=== PATIENT | male | born 1960 | race Caucasian/White ===

== ENCOUNTER 2016-11-01 09:37 | Day surgery (SDC) | payer MEDICARE ==
[~2016-11-01] VITALS: Ht 193 cm; Wt 117.8 kg
[2016-11-01] VITALS (12 sets, daily range): BP systolic 122–162; BP diastolic 82–109; PULSE 67–81; RESP 12–22; TEMP 97.5–97.7; O2SAT 87–96; Ht 193 cm; Wt 117.8 kg
[~2016-11-01 09:37] MED LIST: AMLO5TAB2 PO; CALC-946 PO; HYDR12.530 PO; LIDOCAINE 1% (10mg/ml) 2ml SDV INJ ONE; METO-275 PO; MOME13HF2 INH; NORMAL SALINE 1,000 ML IV ONE; OMEP20CA10 PO; POTA10CA32 PO
--- OUTSIDE RECORDS SUMMARY | 2016-11-01 09:42 | XMS REPORT | Referral Summary ---
Author Author [facility] Organization [facility] Address Unknown Phone Unavailable Care Team Providers Care Family Preservation Officer Name Role Phone Fran Calixto Primary Care Physician [phone] Encounter Date(s): 11/18/15 - 11/18/15 [facility] [address] [place] [id number] Discharge Diagnosis: Sarcoidosis Discharge Disposition: 01-Home or Self Care Attending Physician: Norma Yuan MD Admitting Physician: Norma Yuan MD Referring Physician: Norma Yuan MD Vital Signs No data available for this section Problem List Condition Effective Dates Status Health Status Informant Acute peptic Active ulcer(Confirmed) At risk for Active infection(Confirmed) 1 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 ) Calculus in Active urethra(Confirmed) H/O Active sarcoidosis(Confirme d) Hypertension(Confirm Active ed) Irregular heart Active rhythm(Confirmed) Kidney stone Active (disorder)(Confirmed ) Mental Active retardation(Confirme d) Peptic 1984 Active ulcer(Confirmed) Sarcoidosis Active (disorder)(Confirmed ) Schizophrenia(Confir Active med) 1Problem added automatically by system based on initiation of At Risk for Infection in Nutrition Plan of Care Allergies, Adverse Reactions, Alerts Substance Reaction Severity Status NKMA Active No Known Allergies Active Medications amLODIPine 5 mg oral tablet See Instructions, 1 tabs Oral Daily,Instr:DC 10 mg tablets, # 90 tabs, eRx: [facility], 1 tabs Oral Daily,Instr:DC 10 mg tablets Start Date: 06/02/15 Status: Ordered amLODIPine 5 mg oral tablet See Instructions, 1 tabs Oral Daily,Instr:DC 10 mg tablets, # 90 tabs, eRx: [facility], 1 tabs Oral Daily,Instr:DC 10 mg tablets Start Date: 09/08/15 Status: Ordered Metoprolol Succinate ER 25 mg oral tablet, extended release See Instructions, 1 tabs Oral Daily, # 90 tabs, eRx: [facility], 1 tabs Oral Daily Start Date: 09/29/15 Status: Ordered multivitamin 1 tabs, Chewed, Daily, 0 Refill(s) Start Date: 03/19/15 Status: Ordered omeprazole 20 mg oral delayed release capsule See Instructions, TAKE ONE CAPSULE BY MOUTH ONCE DAILY, # 30 caps, eRx: [facility], TAKE ONE CAPSULE BY MOUTH ONCE DAILY Start Date: 11/17/15 Status: Ordered omeprazole 20 mg oral delayed release capsule See Instructions, TAKE ONE CAPSULE BY MOUTH ONCE DAILY, # 30 caps, eRx: [facility], TAKE ONE CAPSULE BY MOUTH ONCE DAILY Start Date: 10/06/15 Status: Ordered PriLOSEC 20 mg oral delayed release capsule 20 mg 1 caps, Oral, BID, # 60 caps, 6 Refill(s), Pharmacy: [facility], 1 caps Oral BID Start Date: 11/18/15 Status: Ordered Vitamin D3 5000 intl units oral tablet 5,000 Intl_Units 1 tabs, Oral, Daily, # 100 tabs, 0 Refill(s) Start Date: 10/23/14 Status: Ordered Results No data available for this section Immunizations Vaccine Date Refusal Reason influenza virus vaccine, inactivated 03/19/15 influenza virus vaccine, inactivated1 04/05/14 1Location History: See scanned document Procedures Procedure Date Related Diagnosis Body Site Cystoscopy Ureteroscopy1 08/28/15 Nephrostolithotomy Percutaneous (Right)2 08/07/15 Nephrostolithotomy Percutaneous (Left)3 07/03/15 Cystoscopy Retrograde Pyelogram (Left)4 05/06/15 Cystoscopy Ureteroscopy (Left)5 05/06/15 Colonoscopy6 12/27/11 Esophagogastroduodenoscopy7 12/27/11 LT Ureteroscopy 02/17/11 Pyeloscopy w/laser lithotripsy 02/17/11 Bronchoscopy8 02/03/11 Ld ESWL w/ cystoscopy/remove j-stent 11/24/10 LT percutaneous nephrolithotomy9 09/29/10 RT percutaneous [id number] 09/01/10 Blood [id number] 1983 Parathyroid 1auto-populated from documented surgical case 2auto-populated from documented surgical case 3auto-populated from documented surgical case 4auto-populated from documented surgical case 5auto-populated from documented surgical case 6WNL repeat in 10 yrs 7Showing mild chornic gastritis and reflux esophagitis 8Trombold 9Fitzig 10Double J-Stent insertion Fitzig 11Due to bleeding gastric ulcer Social History Social History Type Response Smoking Status Never smoker Assessment and Plan No data available for this section
--- OUTSIDE RECORDS SUMMARY | 2016-11-01 09:42 | XMS REPORT | Referral Summary ---
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 Providers Care Commission Agent Livestock Name Role Phone Fran Calixto Primary Care Physician [phone] Encounter VC Date(s): 05/09/15 - 05/09/15 [facility] [address] [place] [id number] Discharge Disposition: 01-Home or Self Care Attending Physician: Mario Tomas MD Admitting Physician: Mario Tomas MD Vital Signs Most recent to 1 oldest [Reference Range]: Blood Pressure 130/80 mmHg [90-140/60-90 mmHg] (05/09/15 8:30 AM) Problem List Condition Effective Dates Status Health Status Informant Acute peptic Active ulcer(Confirmed) 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 ) Calculus in Active urethra(Confirmed) Hypertension(Confirm Active ed) Irregular heart Active rhythm(Confirmed) Kidney stone Active (disorder)(Confirmed ) Mental Active retardation(Confirme d) Peptic 1984 Active ulcer(Confirmed) Sarcoidosis Active (disorder)(Confirmed ) Schizophrenia(Confir Active med) Allergies, Adverse Reactions, Alerts Substance Reaction Severity Status NKMA Active No Known Allergies Active Medications amLODIPine 5 mg oral tablet See Instructions, 1 tabs Oral Daily,Instr:DC 10 mg tablets, # 90 tabs, eRx: [facility], 1 tabs Oral Daily,Instr:DC 10 mg tablets Start Date: 03/04/15 Status: Ordered Cipro 500 mg oral tablet 500 mg 1 tabs, Oral, q12hr, X 10 days, # 8 tabs, 0 Refill(s), Pharmacy: [facility], 1 tabs Oral q12hr,x10 days Start Date: 05/06/15 Stop Date: 05/16/15 Status: Ordered Flomax 0.4 mg oral capsule 0.4 mg 1 caps, Oral, Daily, # 30 caps, 0 Refill(s), Pharmacy: [facility], 1 caps Oral Daily Start Date: 05/06/15 Status: Ordered hydrochlorothiazide 12.5 mg oral capsule See Instructions, 1 caps Oral Daily, # 30 Each, 10 Refill(s), eRx: [facility], 1 caps Oral Daily Start Date: 03/31/15 Status: Ordered Metoprolol Succinate ER 25 mg oral tablet, extended release 1 tabs, Oral, Daily, # 90 tabs, 3 Refill(s), Pharmacy: [facility] Start Date: 06/24/14 Status: Ordered multivitamin 1 tabs, Chewed, Daily, 0 Refill(s) Start Date: 03/19/15 Status: Ordered omeprazole 20 mg oral delayed release tablet See Instructions, 1 tabs Oral Daily, # 30 tabs, 5 Refill(s), eRx: [facility], 1 tabs Oral Daily Start Date: 01/10/15 Status: Ordered predniSONE 10 mg oral tablet See Instructions, TAKE ONE TABLET BY MOUTH ONCE DAILY, # 30 tabs, eRx: [facility], TAKE ONE TABLET BY MOUTH ONCE DAILY Start Date: 05/05/15 Status: Ordered Vitamin D3 5000 intl units oral tablet Oral, Daily, # 100 tabs, 0 Refill(s) Start Date: 10/23/14 Status: Ordered Results No data available for this section Immunizations Vaccine Date Refusal Reason influenza virus vaccine, inactivated 03/19/15 influenza virus vaccine, inactivated1 04/05/14 1Location History: See scanned document Procedures Procedure Date Related Diagnosis Body Site Cystoscopy Retrograde Pyelogram (Left)1 05/06/15 Cystoscopy Ureteroscopy (Left)2 05/06/15 Colonoscopy3 12/27/11 Esophagogastroduodenoscopy4 12/27/11 LT Ureteroscopy 02/17/11 Pyeloscopy w/laser lithotripsy 02/17/11 Bronchoscopy5 02/03/11 Ld ESWL w/ cystoscopy/remove j-stent 11/24/10 LT percutaneous nephrolithotomy6 09/29/10 RT percutaneous nephrolithotomy7 09/01/10 Blood transfusion8 1983 Parathyroid 1auto-populated from documented surgical case 2auto-populated from documented surgical case 3WNL repeat in 10 yrs 4Showing mild chornic gastritis and reflux esophagitis 5Trombold 6Fitzig 7Double J-Stent insertion Fitzig 8Due to bleeding gastric ulcer Social History Social History Type Response Smoking Status Never smoker Assessment and Plan Extracted from: Title: Ambulatory Patient Education Author: Mario Tomas MD Date: Family Medicine Dietary Guidelines to Help Prevent Kidney Stones Your risk of kidney stones can be decreased by adjusting the foods you eat. The most important thing you can do is drink enough fluid. You should drink enough fluid to keep your urine clear or pale yellow. The following guidelines provide specific information for the type of kidney stone you have had. GUIDELINES ACCORDING TO TYPE OF KIDNEY STONE Calcium Oxalate Kidney Stones Reduce the amount of salt you eat. Foods that have a lot of salt cause your body to release excess calcium into your urine. The excess calcium can combine with a substance called oxalate to form kidney stones. Reduce the amount of animal protein you eat if the amount you eat is excessive. Animal protein causes your body to release excess calcium into your urine. Ask your dietitian how much protein from animal sources you should be eating. Avoid foods that are high in oxalates. If you take vitamins, they should have less than 500 mg of vitamin C. Your body turns vitamin C into oxalates. You do not need to avoid fruits and vegetables high in vitamin C. Calcium Phosphate Kidney Stones Reduce the amount of salt you eat to help prevent the release of excess calcium into your urine. Reduce the amount of animal protein you eat if the amount you eat is excessive. Animal protein causes your body to release excess calcium into your urine. Ask your dietitian how much protein from animal sources you should be eating. Get enough calcium from food or take a calcium supplement (ask your dietitian for recommendations). Food sources of calcium that do not increase your risk of kidney stones include: Broccoli. Dairy products, such as cheese and yogurt. Pudding. Uric Acid Kidney Stones Do not have more than 6 oz of animal protein per day. FOOD SOURCES Animal Protein Sources Meat (all types). Poultry. Eggs. Fish, seafood. Foods High in Salt Salt seasonings. Soy sauce. Teriyaki sauce. Cured and processed meats. Salted crackers and snack foods. Fast food. Canned soups and most canned foods. Foods High in Oxalates Grains: Amaranth. Barley. Grits. Wheat germ. Bran. Buckwheat flour. All bran cereals. Pretzels. Whole wheat bread. Vegetables: Beans (wax). Beets and beet greens. Sami greens. Eggplant. Escarole. Leeks. Okra. Parsley. Rutabagas. Spinach. German chard. Tomato paste. Fried potatoes. Sweet potatoes. Fruits: Red currants. Figs. Kiwi. Rhubarb. Meat and Other Protein Sources: Beans (dried). Soy burgers and other soybean products. Miso. Nuts (peanuts, almonds, pecans, cashews, hazelnuts). Nut butters. Sesame seeds and tahini (paste made of sesame seeds). Poppy seeds. Beverages: Chocolate drink mixes. Soy milk. Instant iced tea. Juices made from high-oxalate fruits or vegetables. Other: Carob. Chocolate. Fruitcake. Marmalades. Document Released: 10/08/2011 Document Revised: 06/18/2014 Document Reviewed: [employer] Patient Information 2015 [facility], [facility]. This information is not intended to replace advice given to you by your health care provider. Make sure you discuss any questions you have with your health care provider. No follow up information was provided. Extracted from: Title: Office Visit Note Author: Mario Tomas MD Date: 05/09/15 Assessment/Plan Kidney stone
--- OUTSIDE RECORDS SUMMARY | 2016-11-01 09:42 | XMS REPORT | Referral Summary ---
Author Author [facility] Organization [facility] Address Unknown Phone Unavailable Care Team Providers Care Central Office Associate Name Role Phone Fran Calixto Primary Care Physician [phone] Encounter VC Date(s): 12/09/14 - 12/09/14 [facility] [address] [place] [id number] Discharge Disposition: 01-Home or Self Care Attending Physician: Min Calixto MD Admitting Physician: Min Calixto MD Vital Signs Most recent to 1 oldest [Reference Range]: Blood Pressure 116/84 mmHg [90-140/60-90 mmHg] (12/09/14 1:33 PM) Problem List Condition Effective Dates Status Health [...] 10 mg tablets, # 90 tabs, eRx: [facility], 1 tabs Oral Daily,Instr:DC 10 mg tablets Start Date: 06/02/15 Status: Ordered Metoprolol Succinate ER 25 mg oral tablet, extended release 1 tabs, Oral, Daily, # 90 tabs, 3 Refill(s), Pharmacy: [facility] Start Date: 06/24/14 Status: Ordered multivitamin 1 tabs, Chewed, Daily, 0 Refill(s) Start Date: 03/19/15 Status: Ordered omeprazole 20 mg oral delayed release tablet See Instructions, 1 tabs Oral Daily, # 30 tabs, 5 Refill(s), eRx: [facility], 1 tabs Oral Daily Start Date: 01/10/15 Status: Ordered Vitamin D3 5000 intl units oral tablet Oral, Daily, # 100 tabs, 0 Refill(s) Start Date: 10/23/14 Status: Ordered Results Chemistry Most recent to 1 oldest [Reference Range]: Sodium Lvl [135-144 142 mEq/L mEq/L] (12/09/14 2:44 PM) Potassium Lvl 3.7 mEq/L [3.5-5.2 mEq/L] (12/09/14 2:44 PM) Chloride [99-111 104 mEq/L mEq/L] (12/09/14 2:44 PM) CO2 [23-31 mEq/L] 29 mEq/L (12/09/14 2:44 PM) AGAP [3-20] 9 (12/09/14 2:44 PM) BUN [8-26 mg/dL] 22 mg/dL (12/09/14 2:44 PM) Glucose Lvl [70-99 90 mg/dL mg/dL] (12/09/14 2:44 PM) Creatinine Lvl 1.29 mg/dL [0.72-1.25 mg/dL] *HI* (12/09/14 2:44 PM) eGFR [>60 mL/min] 58 mL/min 1 *ABN* (12/09/14 2:44 PM) Calcium Lvl 9.9 mg/dL [8.9-10.5 mg/dL] (12/09/14 2:44 PM) Albumin Lvl [3.5-5.0 4.0 gm/dL gm/dL] (12/09/14 2:44 PM) Total Protein 6.2 gm/dL [6.4-8.3 gm/dL] *LOW* (12/09/14 2:44 PM) Globulin [1.8-4.0 2.2 gm/dL gm/dL] (12/09/14 2:44 PM) ALT [0-55 U/L] 24 U/L (12/09/14 2:44 PM) AST [5-34 U/L] 22 U/L (12/09/14 2:44 PM) Alk Phos [40-150 55 U/L U/L] (12/09/14 2:44 PM) Bili Total [0.2-1.2 0.7 mg/dL mg/dL] (12/09/14 2:44 PM) T4 [4.8-11.7 mcg/dL] 6.5 mcg/dL (12/09/14 2:44 PM) TSH [0.35-4.94] 2.87 (12/09/14 2:44 PM) 1Result Comment: Multiply eGFR results by 1.21 for race. Immunizations Vaccine Date Refusal Reason influenza virus [...] Extracted from: Title: Ambulatory Patient Education Author: Min Calixto MD Date: Family Medicine Diet for Peptic Ulcer Disease Peptic ulcer disease is a term used to describe open sores in the stomach and digestive tract. These sores can be painful, and the pain can be worse when the stomach is empty. These ulcers can lead to bleeding in the esophagus, stomach, and intestines (gastrointestinal tract ). Nutrition therapy can help ease the discomfort of peptic ulcer disease. GENERAL DIET GUIDELINES FOR PEPTIC ULCER DISEASE Your diet should be rich in fruits, vegetables, and whole grains. It should also be low in fat. Avoid foods that can irritate your sores. Avoid foods that are not tolerated or foods that cause pain. This may be different for different people. FOODS AND DRINKS TO AVOID High-fat dairy and milk products including whole milk, cream, chocolate milk, butter, sour cream, or cream cheese. High-fat meats and poultry including hot dogs, fried meats or poultry, meats with skin, sausage, or cintron. Pepper. Alcohol. Chocolate. Tea, coffee, and cola (regular and caffeine). Lard or hydrogenated oils such as stick margarine. SAMPLE MEAL PLAN This meal plan is approximately 2000 calories based on [employer] meal planning guidelines. Breakfast cup cooked oatmeal. 1 cup strawberries. 1 cup low-fat milk. 1 oz almonds. Snack 1 cup cucumber slices. 6 oz yogurt (made from low-fat or fat-free milk). Lunch 2 slices whole-wheat bread. 2 oz sliced turkey. 2 tsp mayonnaise. 1 cup blueberries. 1 cup snap peas. Snack 6 whole-wheat crackers. 1 oz string cheese. Dinner cup brown rice. 1 cup mixed veggies. 1 tsp olive oil. 3 oz grilled fish. Document Released: 09/04/2012 Document Reviewed: 09/04/2012 [facility] Patient Information 2014 [employer] [facility]. Peptic Ulcer A peptic ulcer is a sore in the lining of in your esophagus (esophageal ulcer ) , stomach (gastric ulcer ), or in the first part of your small intestine ( duodenal ulcer ). The ulcer causes erosion into the deeper tissue. CAUSES Normally, the lining of the stomach and the small intestine protects itself from the acid that digests food. The protective lining can be damaged by: An infection caused by a bacterium called Helicobacter pylori (H. pylori ) . Regular use of nonsteroidal anti-inflammatory drugs (NSAIDs), such as ibuprofen or aspirin. Smoking tobacco. Other risk factors include being older than 50, drinking alcohol excessively, and having a family history of ulcer disease. SYMPTOMS Burning pain or gnawing in the area between the chest and the belly button. Heartburn. Nausea and vomiting. Bloating. The pain can be worse on an empty stomach and at night. If the ulcer results in bleeding, it can cause: Black, tarry stools. Vomiting of bright red blood. Vomiting of coffee ground looking materials. DIAGNOSIS A diagnosis is usually made based upon your history and an exam. Other tests and procedures may be performed to find the cause of the ulcer. Finding a cause will help determine the best treatment. Tests and procedures may include: Blood tests, stool tests, or breath tests to check for the bacterium H. pylori . An upper gastrointestinal (GI) series of the esophagus, stomach, and small intestine. An endoscopy to examine the esophagus, stomach, and small intestine. A biopsy. TREATMENT Treatment may include: Eliminating the cause of the ulcer, such as smoking, NSAIDs, or alcohol. Medicines to reduce the amount of acid in your digestive tract. Antibiotic medicines if the ulcer is caused by the H. pylori bacterium. An upper endoscopy to treat a bleeding ulcer. Surgery if the bleeding is severe or if the ulcer created a hole somewhere in the digestive system. HOME CARE INSTRUCTIONS Avoid tobacco, alcohol, and caffeine. Smoking can increase the acid in the stomach, and continued smoking will impair the healing of ulcers. Avoid foods and drinks that seem to cause discomfort or aggravate your ulcer. Only take medicines as directed by your caregiver. Do not substitute over- the-counter medicines for prescription medicines without talking to your caregiver. Keep any follow-up appointments and tests as directed. SEEK MEDICAL CARE IF: Your do not improve within 7 days of starting treatment. You have ongoing indigestion or heartburn. SEEK IMMEDIATE MEDICAL CARE IF: You have sudden, sharp, or persistent abdominal pain. You have bloody or dark black, tarry stools. You vomit blood or vomit that looks like coffee grounds. You become light headed, weak, or feel faint. You become sweaty or clammy. MAKE SURE YOU: Understand these instructions. Will watch your condition. Will get help right away if you are not doing well or get worse. Document Released: 06/10/2001 Document Revised: 03/07/2013 Document Reviewed: [employer] Patient Information 2014 [employer]. No follow up information was provided. Extracted from: Title: Office Visit Note Author: Min Calixto MD Date: 12/09/14 Assessment/Plan Acute peptic ulcer Will start Prilosec 20mg daily. Continue with the other medications. Ordered: Helicobacter pylori Antibody IgG Office Visit Level 4 Est 93605 Hypertension Ordered: Office Visit Level 4 Est 83201 Mental retardation Ordered: Office Visit Level 4 Est 78441 Sarcoidosis (disorder) Ordered: Office Visit Level 4 Est 80261 Orders: amLODIPine, 5 mg 1 tabs, Oral, Daily, DC 10 mg tablets, # 90 tabs, 0 Refill(s), Pharmacy: [facility], 1 tabs Oral Daily,Instr:DC 10 mg tablets omeprazole, 20 mg 1 tabs, Oral, Daily, # 30 tabs, 0 Refill(s), Pharmacy: [facility], 1 tabs Oral Daily
--- OUTSIDE RECORDS SUMMARY | 2016-11-01 09:42 | XMS REPORT | Referral Summary ---
Author Organization Unknown Address Unknown Phone Unavailable Care Team Providers Care Technical Assoc Name Role Phone Fran Calixto Primary Care Physician [phone] Encounter [facility] [id number] Date(s): 10/23/14 - 10/23/14 [facility] [address] [place], [place] [address] Discharge Diagnosis: CALCULUS OF KIDNEY Discharge Disposition: Home or Self Care Attending Physician: Mario Tomas MD Admitting Physician: Mario Tomas MD Vital Signs Most recent to 1 oldest [Reference Range]: Blood Pressure 124/74 mmHg [90-140/60-90 mmHg] (10/23/14 11:00 AM) Problem List Condition Effective Dates Status Health Status Informant 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 ) Calculus in Active urethra(Confirmed) Hypertension(Confirm Active ed) Irregular heart Active rhythm(Confirmed) Kidney stone Active (disorder)(Confirmed ) Mental Active retardation(Confirme d) Peptic 1984 Active ulcer(Confirmed) Sarcoidosis Active (disorder)(Confirmed ) Schizophrenia(Confir Active med) Allergies, Adverse Reactions, Alerts Substance Reaction Severity Status NKMA Active No Known Allergies Active Medications AmLODIPine Besylate 10MG TAB See Instructions, TAKE ONE TABLET BY MOUTH ONCE DAILY, # 90 tabs, eRx: [facility], TAKE ONE TABLET BY MOUTH ONCE DAILY Special Instructions: TAKE ONE TABLET BY MOUTH ONCE DAILY Start Date: 03/07/14 Status: Ordered AmLODIPine Besylate 10MG TAB See Instructions, TAKE ONE TABLET BY MOUTH ONCE DAILY, # 90 tabs, eRx: [facility], TAKE ONE TABLET BY MOUTH ONCE DAILY Special Instructions: TAKE ONE TABLET BY MOUTH ONCE DAILY Start Date: 08/26/14 Status: Ordered AmLODIPine Besylate 10MG TAB See Instructions, TAKE ONE TABLET BY MOUTH ONCE DAILY, # 90 tabs, eRx: [facility], TAKE ONE TABLET BY MOUTH ONCE DAILY Special Instructions: TAKE ONE TABLET BY MOUTH ONCE DAILY Start Date: 06/03/14 Status: Ordered hydrochlorothiazide 12.5 mg oral capsule 1 caps, Oral, Daily, # 90 caps, 1 Refill(s), Pharmacy: [facility], 1 caps Oral Daily Start Date: 07/25/14 Status: Ordered methotrexate 2.5 mg oral tablet See Instructions, TAKE FOUR TABLETS BY MOUTH ONCE A WEEK, # 16 tabs, 5 Refill(s) , eRx: [facility], TAKE FOUR TABLETS BY MOUTH ONCE A WEEK Special Instructions: TAKE FOUR TABLETS BY MOUTH ONCE A WEEK Start Date: 08/12/14 Status: Ordered Metoprolol Succinate ER 25 mg oral tablet, extended release 1 tabs, Oral, Daily, # 90 tabs, 3 Refill(s), Pharmacy: [facility] Start Date: 06/24/14 Status: Ordered Norvasc 10 mg oral tablet 1 tabs, Oral, Daily, # 30 tabs, 0 Refill(s) Start Date: 11/29/13 Status: Ordered predniSONE 10 mg oral tablet See Instructions, TAKE ONE TABLET BY MOUTH EVERY DAY, # 30 tabs, 5 Refill(s), eRx: [facility], TAKE ONE TABLET BY MOUTH EVERY DAY Special Instructions: TAKE ONE TABLET BY MOUTH EVERY DAY Start Date: 04/30/14 Status: Ordered Vitamin D3 5000 intl units oral tablet 1 tabs, Oral, Daily, # 100 tabs, 0 Refill(s) Start Date: 10/23/14 Status: Ordered Results No data available for this section Immunizations Vaccine Date Refusal Reason influenza virus vaccine, inactivated1 04/05/14 1Location History: See scanned document Procedures Procedure Date Related Diagnosis Body Site Colonoscopy1 12/27/11 Esophagogastroduodenoscopy2 12/27/11 LT Ureteroscopy 02/17/11 Pyeloscopy w/laser lithotripsy 02/17/11 Bronchoscopy3 02/03/11 Ld ESWL w/ cystoscopy/remove j-stent 11/24/10 LT percutaneous nephrolithotomy4 09/29/10 RT percutaneous nephrolithotomy5 09/01/10 Blood transfusion6 1983 1WNL repeat in 10 yrs 2Showing mild chornic gastritis and reflux esophagitis 3Trombold 4Fitzig 5Double J-Stent insertion Fitzig 6Due to bleeding gastric ulcer Social History Social History Type Response Smoking Status Never smoker Assessment and Plan Extracted from: Title: Office Visit Note Author: Mario Tomas MD Date: 10/23/14 Assessment/Plan CALCULUS OF KIDNEY Ordered: Calcium Ionized Calcium Level 24 Hour Urine Citrate Excretion 24 Hour Urine-[place] Comprehensive Metabolic Panel Creatinine Lvl 24 Hour Urine Cystinuria Profile Quant 24Hr [facility]-[place] Magnesium Level 24 Hour Urine Oxalate 24 Hour Urine[facility] pH Urine PTH Sodium Level 24 Hour Urine Uric Acid Uric Acid 24 Hour Urine XR Abdomen AP Future Scheduled TestsReferral* Return to Clinic 02/04/14 1:11 PM Referrals to Other Providers Referred by: Marly An MD
--- OUTSIDE RECORDS SUMMARY | 2016-11-01 09:42 | XMS REPORT | Referral Summary ---
Author Author [facility] Organization [facility] Address Unknown Phone Unavailable Care Team Providers Care Chief Order Dispatcher Name Role Phone Fran Calixto Primary Care Physician [phone] Encounter Date(s): 10/23/14 - 10/23/14 [facility] [address] [place] [id number] Discharge Diagnosis: CALCULUS OF KIDNEY Discharge Disposition: 01-Home or Self Care Attending Physician: Mario Tomas MD Admitting Physician: Mario oTmas MD Vital Signs Most recent to 1 [...] 10 mg tablets, # 90 tabs, eRx: [facility], 1 tabs Oral Daily,Instr:DC 10 mg tablets Start Date: 03/04/15 Status: Ordered hydrochlorothiazide 12.5 mg oral capsule See Instructions, 1 caps Oral Daily, # 30 Each, 10 Refill(s), eRx: [facility], 1 caps Oral Daily Start Date: 03/31/15 Status: Ordered Metoprolol Succinate ER 25 mg oral tablet, extended release 1 tabs, Oral, Daily, # 90 tabs, 3 Refill(s), Pharmacy: [facility]28 Start Date: 06/24/14 Status: Ordered multivitamin 1 tabs, Chewed, Daily, 0 Refill(s) Start Date: 03/19/15 Status: Ordered omeprazole 20 mg oral delayed release tablet See Instructions, 1 tabs Oral Daily, # 30 tabs, 5 Refill(s), eRx: [facility], 1 tabs Oral Daily Start Date: 01/10/15 Status: Ordered predniSONE 10 mg oral tablet See Instructions, TAKE ONE TABLET BY MOUTH ONCE DAILY, # 30 tabs, eRx: [facility], TAKE ONE TABLET BY MOUTH ONCE DAILY Start Date: 03/31/15 Status: Ordered Vitamin D3 5000 intl units [...] 24 Hour Urine Citrate Excretion 24 Hour Urine-[place] Comprehensive Metabolic Panel Creatinine Lvl 24 Hour Urine Cystinuria Profile Quant 24Hr Urine-[facility] Magnesium Level 24 Hour Urine Oxalate 24 Hour Urine-[facility] pH Urine PTH Sodium Level 24 Hour Urine Uric Acid Uric Acid 24 Hour Urine XR Abdomen AP
--- OUTSIDE RECORDS SUMMARY | 2016-11-01 09:42 | XMS REPORT | Referral Summary ---
Author Author [facility] Organization [facility] Address Unknown Phone Unavailable Care Team Providers Care Director Organizational Name Role Phone Fran Calixto Primary Care Physician [phone] Encounter [facility] [id number] Date(s): 05/13/15 - 05/13/15 [facility] [address] [place] [address] Discharge Diagnosis: Pulmonary nodules Discharge Diagnosis: Mediastinal lymphadenopathy Discharge Diagnosis: Cough Discharge Disposition: 01-Home or Self Care Attending Physician: Norma Yuan MD Admitting Physician: Norma Yuan MD Referring Physician: Eric Salcedo MD Vital Signs Most recent to 1 oldest [Reference Range]: Peripheral Pulse 71 bpm Rate [60-100 bpm] (05/13/15 3:17 PM) Respiratory Rate 22 br/min [14-20 br/min] *HI* (05/13/15 3:17 PM) Blood Pressure 135/89 mmHg [90-140/60-90 mmHg] (05/13/15 3:17 PM) SpO2 96 % (05/13/15 3:17 PM) Problem List Condition Effective Dates Status [...] 10 mg tablets, # 90 tabs, eRx: [facility], 1 tabs Oral Daily,Instr:DC 10 mg tablets Start Date: 03/04/15 Status: Ordered Cipro 500 mg oral tablet 500 mg 1 tabs, Oral, q12hr, X 10 days, # 8 tabs, 0 Refill(s), Pharmacy: [facility], 1 tabs Oral q12hr,x10 days Start Date: 05/06/15 Stop Date: 05/16/15 Status: Ordered Metoprolol Succinate ER 25 mg oral tablet, extended release 1 tabs, Oral, Daily, # 90 tabs, 3 Refill(s), Pharmacy: [facility] Start Date: 06/24/14 Status: Ordered multivitamin 1 tabs, Chewed, Daily, 0 Refill(s) Start Date: 03/19/15 Status: Ordered omeprazole 20 mg oral delayed release tablet See Instructions, 1 tabs Oral Daily, # 30 tabs, 5 Refill(s), eRx: [facility], 1 tabs Oral [...] Extracted from: Title: Ambulatory Patient Education Author: Norma Yuan Date: 05/13/15 [facility] Lymphadenopathy Lymphadenopathy means "disease of the lymph glands." But the term is usually used to describe swollen or enlarged lymph glands, also called lymph nodes. These are the franks-shaped organs found in many locations including the neck, underarm, and groin. Lymph glands are part of the immune system, which fights infections in your body. Lymphadenopathy can occur in just one area of the body , such as the neck, or it can be generalized, with lymph node enlargement in several areas. The nodes found in the neck are the most common sites of lymphadenopathy. CAUSES When your immune system responds to germs (such as viruses or bacteria ), infection-fighting cells and fluid build up. This causes the glands to grow in size. Usually, this is not something to worry about. Sometimes, the glands themselves can become infected and inflamed. This is called lymphadenitis. Enlarged lymph nodes can be caused by many diseases: Bacterial disease, such as strep throat or a skin infection. Viral disease, such as a common cold. Other germs, such as Lyme disease, tuberculosis, or sexually transmitted diseases. Cancers, such as lymphoma (cancer of the lymphatic system) or leukemia ( cancer of the white blood cells). Inflammatory diseases such as lupus or rheumatoid arthritis. Reactions to medications. Many of the diseases above are rare, but important. This is why you should see your caregiver if you have lymphadenopathy. SYMPTOMS Swollen, enlarged lumps in the neck, back of the head, or other locations. Tenderness. Warmth or redness of the skin over the lymph nodes. Fever. DIAGNOSIS Enlarged lymph nodes are often near the source of infection. They can help health care providers diagnose your illness. For instance: Swollen lymph nodes around the jaw might be caused by an infection in the mouth. Enlarged glands in the neck often signal a throat infection. Lymph nodes that are swollen in more than one area often indicate an illness caused by a virus. Your caregiver will likely know what is causing your lymphadenopathy after listening to your history and examining you. Blood tests, x-rays, or other tests may be needed. If the cause of the enlarged lymph node cannot be found, and it does not go away by itself, then a biopsy may be needed. Your caregiver will discuss this with you. TREATMENT Treatment for your enlarged lymph nodes will depend on the cause. Many times the nodes will shrink to normal size by themselves, with no treatment. Antibiotics or other medicines may be needed for infection. Only take over-the- counter or prescription medicines for pain, discomfort, or fever as directed by your caregiver. HOME CARE INSTRUCTIONS Swollen lymph glands usually return to normal when the underlying medical condition goes away. If they persist, contact your health-care provider. He/she might prescribe antibiotics or other treatments, depending on the diagnosis. Take any medications exactly as prescribed. Keep any follow-up appointments made to check on the condition of your enlarged nodes. SEEK MEDICAL CARE IF: Swelling lasts for more than two weeks. You have symptoms such as weight loss, night sweats, fatigue, or fever that does not go away. The lymph nodes are hard, seem fixed to the skin, or are growing rapidly. Skin over the lymph nodes is red and inflamed. This could mean there is an infection. SEEK IMMEDIATE MEDICAL CARE IF: Fluid starts leaking from the area of the enlarged lymph node. You develop a fever of 102 F (38.9 C) or greater. Severe pain develops (not necessarily at the site of a large lymph node). You develop chest pain or shortness of breath. You develop worsening abdominal pain. MAKE SURE YOU: Understand these instructions. Will watch your condition. Will get help right away if you are not doing well or get worse. Document Released: 03/22/2009 Document Revised: 10/28/2014 Document Reviewed: [facility] Patient Information 2015 [facility]. This information is not intended to replace advice given to you by your health care provider. Make sure you discuss any questions you have with your health care provider. No follow up information was provided. Extracted from: Title: Office Visit Note Author: Norma Yuan Date: 05/13/15 [facility]EL Assessment/Plan 1.Pulmonary nodules 2.Mediastinal lymphadenopathy 3.Cough CT chest done today shows stable pulmonary nodules and hilar lymphadenopathy. It's really unclear if this is sarcoidosis versus histoplasmosis given the calcificationon the mediastinal lymph nodes. And not really sure if patient has cough secondary to sarcoidosis or postnasal drip and acid reflux At this point patient has stable CT chest no need for further follow-ups taper prednisone off and assess the patient's cough if patient's cough is stablethenwould continue to monitor if he has recurrence of the cough. We' ll restart the prednisone and we'll investigate other potential causes such as postnasal drip, acid reflux disease or asthma induced cough Orders: pulmonary stress testing simple 64035
--- OUTSIDE RECORDS SUMMARY | 2016-11-01 09:43 | XMS REPORT | Referral Summary ---
Author Author [facility] Organization [facility] Address Unknown Phone Unavailable Care Team Providers Care Interior Systems Carpenter Name Role Phone Fran Calixto Primary Care Physician [phone] Encounter [facility] Date(s): 08/07/15 - 08/09/15 [facility] [address] [place], [place] [address] Discharge Disposition: 01-Home or Self Care Attending Physician: Mario Tomas MD Admitting Physician: Mario Tomas MD Vital Signs Most recent to 1 oldest [Reference Range]: Temperature Oral 36.6 degC [35.8-37.3 degC] (08/09/15 12:00 PM) Temperature Skin 36.1 degC [36-37 degC] (08/07/15 11:50 AM) Temperature Temporal 35.9 degC Artery [36.3-37.8 *LOW* degC] (08/07/15 7:06 AM) Peripheral Pulse 61 bpm Rate [60-100 bpm] (08/09/15 12:00 PM) Heart Rate Monitored 83 bpm [60-100 bpm] (08/07/15 3:20 PM) Respiratory Rate 16 br/min [14-20 br/min] (08/09/15 12:00 PM) Blood Pressure 120/76 mmHg [90-140/60-90 mmHg] (08/09/15 12:00 PM) Mean Arterial 105 mmHg Pressure, Cuff (08/07/15 3:20 PM) SpO2 94 % (08/09/15 12:00 PM) Problem List Condition Effective Dates Status [...] 10 mg tablets, # 90 tabs, eRx: [facility], 1 tabs Oral Daily,Instr:DC 10 mg tablets Start Date: 06/02/15 Status: Ordered Metoprolol Succinate ER 25 mg oral tablet, extended release 25 mg 1 tabs, Oral, Daily, # 90 tabs, 0 Refill(s), Pharmacy: [facility] 242 Start Date: 07/02/15 Status: Ordered multivitamin 1 tabs, Chewed, Daily, 0 Refill(s) Start Date: 03/19/15 Status: Ordered omeprazole 20 mg oral delayed release capsule See Instructions, TAKE ONE CAPSULE BY MOUTH ONCE DAILY, # 30 caps, eRx: [facility], TAKE ONE CAPSULE BY MOUTH ONCE DAILY Start Date: 07/07/15 Status: Ordered Vitamin D3 5000 intl units oral tablet 5,000 Intl_Units 1 tabs, Oral, Daily, # 100 tabs, 0 Refill(s) Start Date: 10/23/14 Status: Ordered Results Hematology Most recent to 1 oldest [Reference Range]: WBC [4.8-10.8 4.8 10*3/uL 10*3/uL] (08/08/15 3:36 AM) RBC [4.60-6.20] 5.30 (08/08/15 3:36 AM) Hgb [14.0-18.0 13.8 gm/dL gm/dL] *LOW* (08/08/15 3:36 AM) Hct [42.0-52.0 %] 45.3 % (08/08/15 3:36 AM) MCV [82.0-99.0 fL] 85.5 fL (08/08/15 3:36 AM) MCH [27.0-32.0 pg] 26.0 pg *LOW* (08/08/15 3:36 AM) MCHC [32.0-36.0 30.5 gm/dL gm/dL] *LOW* (08/08/15 3:36 AM) RDW [11.5-14.5 %] 13.2 % (08/08/15 3:36 AM) Platelet [150-400 141 10*3/uL 10*3/uL] *LOW* (08/08/15 3:36 AM) MPV [9.4-12.3 fL] 10.2 fL (08/08/15 3:36 AM) Immature 0.3 % Granulocytes (08/07/15 6:59 AM) [0.0-1.0 %] Neutrophils [51-75 44 % %] *LOW* (08/07/15 6:59 AM) Lymphocytes [20-46 28 % %] (08/07/15 6:59 AM) Monocytes [4-11 %] 18 % *HI* (08/07/15 6:59 AM) Eosinophils [0-4 %] 8 % *HI* (08/07/15 6:59 AM) Basophils [0-2 %] 1 % (08/07/15 6:59 AM) Neutro Absolute 1.41 10*3 [1.90-7.00 10*3] *LOW* (08/07/15 6:59 AM) Lymph Absolute 0.90 10*3 [0.80-3.30 10*3] (08/07/15 6:59 AM) Gooding Absolute 0.58 10*3 [0.30-1.00 10*3] (08/07/15 6:59 AM) Eos Absolute 0.26 10*3 [0.00-0.50 10*3] (08/07/15 6:59 AM) Baso Absolute 0.04 10*3 [0.00-0.20 10*3] (08/07/15 6:59 AM) Coagulation Most recent to 1 oldest [Reference Range]: INR [0.9-1.2] 1.2 (08/07/15 6:59 AM) PTT [25.0-35.0 38.3 seconds seconds] *HI* (08/07/15 6:59 AM) Chemistry Most recent to 1 oldest [Reference Range]: Sodium Lvl [136-144 139 mEq/L mEq/L] (08/08/15 3:36 AM) Potassium Lvl 3.7 mEq/L [3.6-5.1 mEq/L] (08/08/15 3:36 AM) Chloride [99-109 106 mEq/L mEq/L] (08/08/15 3:36 AM) CO2 [22-32 mEq/L] 28 mEq/L (08/08/15 3:36 AM) AGAP [3-20] 5 (08/08/15 3:36 AM) BUN [4-20 mg/dL] 16 mg/dL (08/08/15 3:36 AM) Glucose Lvl [70-100 154 mg/dL mg/dL] *HI* (08/08/15 3:36 AM) Creatinine Lvl 1.32 mg/dL [0.64-1.27 mg/dL] *HI* (08/08/15 3:36 AM) eGFR [>60] 56 1 *ABN* (08/08/15 3:36 AM) Calcium Lvl 8.3 mg/dL [8.6-10.0 mg/dL] *LOW* (08/08/15 3:36 AM) Blood Glucose, 96 mg/dL Capillary [70-100 (08/07/15 7:05 AM) mg/dL] 1Result Comment: Multiply eGFR results by 1.21 for race. Immunizations Vaccine Date Refusal Reason influenza virus vaccine, inactivated 03/19/15 influenza virus vaccine, inactivated1 04/05/14 1Location History: See scanned document Procedures Procedure Date Related Diagnosis Body Site Exchange nephrostomy catheter, percutaneous, 08/07/15 including diagnostic nephrostogram and/or ureterogram when performed, imaging guidance (eg, ultrasound and/or fluoroscopy) and all associated radiological supervision and interpretation Introduction of guide into renal pelvis 08/07/15 and/or ureter with dilation to establish nephrostomy tract, percutaneous.. Nephrostolithotomy Percutaneous (Right)1 08/07/15 Placement of nephroureteral catheter, 08/07/15 percutaneous, including diagnostic nephrostogram and/or ureterogram when performed, imaging guidance (eg, ultrasound and/or fluoroscopy) and all associated radiological supervision and interpretation, new access Nephrostolithotomy Percutaneous (Left)2 07/03/15 Cystoscopy Retrograde Pyelogram (Left)3 05/06/15 Cystoscopy Ureteroscopy (Left)4 05/06/15 Colonoscopy5 12/27/11 Esophagogastroduodenoscopy6 12/27/11 LT Ureteroscopy 02/17/11 Pyeloscopy w/laser lithotripsy 02/17/11 Bronchoscopy7 02/03/11 Ld ESWL w/ cystoscopy/remove j-stent 11/24/10 LT percutaneous nephrolithotomy8 09/29/10 RT percutaneous nephrolithotomy9 09/01/10 Blood [id number] 1983 Parathyroid 1auto-populated from documented surgical case 2auto-populated from documented surgical case 3auto-populated from documented surgical case 4auto-populated from documented surgical case 5WNL repeat in 10 yrs 6Showing mild chornic gastritis and reflux esophagitis 7Trombold 8Fitzig 9Double J-Stent insertion Fitzig 10Due to bleeding gastric ulcer Social History Social History Type Response Smoking Status Never smoker Assessment and Plan No data available for this section
--- OUTSIDE RECORDS SUMMARY | 2016-11-01 09:43 | XMS REPORT | Referral Summary ---
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 Discharge Diagnosis: Schizophrenia Discharge Diagnosis: Mental retardation Discharge Disposition: 01-Home or Self Care Attending Physician: Min Calixto MD Admitting Physician: Min Calixto MD Vital Signs Most recent to 1 oldest [Reference Range]: Blood Pressure 124/76 mmHg [90-140/60-90 mmHg] (05/26/15 10:43 AM) Problem List Condition Effective Dates Status [...] 10 mg tablets, # 90 tabs, eRx: [facility], 1 tabs Oral Daily,Instr:DC 10 mg tablets Start Date: 03/04/15 Status: Ordered Metoprolol Succinate ER 25 mg oral tablet, extended release 1 tabs, Oral, Daily, # 90 tabs, 3 Refill(s), Pharmacy: [facility] Start Date: 06/24/14 Status: Ordered multivitamin 1 tabs, Chewed, Daily, 0 Refill(s) Start Date: 03/19/15 Status: Ordered omeprazole 20 mg oral delayed release tablet See Instructions, 1 tabs Oral Daily, # 30 tabs, 5 Refill(s), eRx: [facility], 1 tabs Oral Daily [...] Author: Min Calixto MD Date: Family Medicine Kidney Stones Kidney stones (urolithiasis) are solid masses that form inside your kidneys. The intense pain is caused by the stone moving through the kidney, ureter, bladder, and urethra (urinary tract). When the stone moves, the ureter starts to spasm around the stone. The stone is usually passed in your pee (urine). HOME CARE Drink enough fluids to keep your pee clear or pale yellow. This helps to get the stone out. Strain all pee through the provided strainer. Do not pee without peeing through the strainer, not even once. If you pee the stone out, catch it in the strainer. The stone may be as small as a grain of salt. Take this to your doctor. This will help your doctor figure out what you can do to try to prevent more kidney stones. Only take medicine as told by your doctor. Follow up with your doctor as told. Get follow-up X-rays as told by your doctor. GET HELP IF: You have pain that gets worse even if you have been taking pain medicine. GET HELP RIGHT AWAY IF: Your pain does not get better with medicine. You have a fever or shaking chills. Your pain increases and gets worse over 18 hours. You have new belly (abdominal) pain. You feel faint or pass out. You are unable to pee. MAKE SURE YOU: Understand these instructions. Will watch your condition. Will get help right away if you are not doing well or get worse. Document Released: 11/29/2008 Document Revised: 02/13/2014 Document Reviewed: [facility] Patient Information 2015 [employer] [facility]. This information is not intended to replace advice given to you by your health care provider. Make sure you discuss any questions you have with your health care provider. No follow up information was provided. Extracted from: Title: Office Visit Note Author: Min Calixto MD Date: 05/26/15 Assessment/Plan Benign neoplasm of parathyroid gland I find patient to be stable for surgery to remove a renal stone. Ordered: Office Visit Level 4 Est 24945 Kidney stone Ordered: Office Visit Level 4 Est 27113 Mental retardation Ordered: Office Visit Level 4 Est 00920 Schizophrenia Ordered: Office Visit Level 4 Est 49554
--- OUTSIDE RECORDS SUMMARY | 2016-11-01 09:43 | XMS REPORT | Continuity of Care Document ---
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 - *Stable Lung involvement in other diseases classified else - *Stable Ventricular Tachycardia - *Chronic Hypertension, Unspecified - *Chronic Sarcoidosis - *Chronic GI bleed - *Controlled Simple type schizophrenia, unspecified state - *Chronic Other and unspecified hyperlipidemia - *Chronic Calculus of kidney - *Poor control Sarcoid - *Fair Control Calculus of kidney - *Chronic Sarcoid - *Chronic Calculus of kidney - *Chronic Calculus of kidney - *Chronic Hyperparathyroidism, unspecified - *Chronic Unspecified vitamin d deficiency - *Chronic Unspecified vitamin d deficiency - Mild Calculus of kidney - *Chronic Hyperparathyroidism, unspecified - Mild DYSPHAGIA NOS - Improved Multiple pulmonary nodules - *Stable Sarcoidosis - *Chronic Cough - *Stable Hypercalcuria - *Chronic Sarcoidosis - Mild Lung involvement in other diseases classified else - *Worse Cough - *Worse Hyperparathyroidism, unspecified - *Chronic Deviated nasal septum - *Stable Sarcoidosis - Chronic Sarcoidosis - Chronic Hyperparathyroidism, unspecified - *Chronic Sarcoidosis - Chronic Calculus of kidney - *Chronic Parathyroid adenoma - *Poor control Sarcoidosis - Chronic Calculus of kidney - Recurrent Sarcoidosis - *Chronic Calculus of kidney - *Chronic Hyperparathyroidism, unspecified - *Controlled Unspecified vitamin d deficiency - *Chronic MENTAL PROBLEMS NEC - BLOOD TRANSFUSION, NO DX - 135 - SARCOIDOSIS - SIMPL SCHIZOPHREN-UNSPEC - HYPERTENSION NOS - CALCULUS OF KIDNEY - URETHRAL CALCULUS - Family History Family Member Diagnosis Age At Onset Status Unknown Social History Social History Element Description Quantity Unknown Allergies, Adverse Reactions, Alerts Substance Reaction Severity Status Unknown Medications Medication Instructions Dosage Effective Dates (start - stop) Status Norvasc 10 mg tablet take 1 tablet (10MG) by oral route every day 10 MG - Active metoprolol succinate ER 25 mg tablet,extended release 24 hr take 1 Tablet ( 25MG) by oral route every day 25 MG - Active prednisone 10 mg tablet take 1 tablet (10MG) by oral route every day 10 MG - Active methotrexate sodium 2.5 mg tablet take 4 Tablet (10MG) by oral route once a week - Active Immunizations Vaccine Date Status Comments Unknown Results Test Name Date and Time Measure Units Reference Range Abnormal Flag Comments Unknown Vital Signs Date / Time: Height Weight Pulse Rate Blood Pressure Temperature /11:22:00 73.19 in 242.30 lbs 80 /min 120/86 mm[Hg] Procedures Procedure Date Unknown Encounters Encounter Location Date Patient Visit [facility] [place] Patient Visit [facility] Patient Visit [facility] Patient Visit [facility] Patient [facility] Patient Visit [facility] Patient [facility] Patient Visit [facility] Patient Visit [facility] Patient [facility] Patient Visit [facility] Advance Directives Directive Effective Date Unknown
--- OUTSIDE RECORDS SUMMARY | 2016-11-01 09:43 | XMS REPORT | Continuity of Care Document ---
Author Author [facility] Organization [facility] Address Unknown Phone Unavailable Allergies Active Description Code Type Severity Reaction Onset Reported/Identified Relationship to Patient Clinical Status Yes No Known Allergies Drug Allergy N/A N/A 10/01/2013 Yes No Known Drug Allergies Drug Allergy N/A N/A 10/01/2013 Yes No Known Food Allergies Food Allergy N/A N/A 10/01/2013 Yes NKMA NKMA N/A N/A 10/23/2013 Yes No Known Allergies NKMA N/A N/A 10/23/2013 Yes NKMA NKMA N/A N/A 10/23/2013 Yes No Known Allergies NKMA N/A N/A 10/23/2013 Medications Medication Packaging Start Date Stop Date Route Dosage Sig methotrexate(methotrexate 2.5 mg oral tablet) 1 tabs 11/29/2013 12/06/2013 Oral 2.5 mg 1 tabs, Oral, qWeek, 4 tabs predniSONE(predniSONE 10 mg oral tablet) 3 tabs 11/29/201305/2014 Oral 30 mg 3 tabs, Oral, Daily, 30 tabs amLODIPine(Norvasc 10 mg oral tablet) 1 tabs 11/29/20132014 Oral 10 mg 1 tabs, Oral, Daily, 30 tabs potassium citrate(potassium citrate 10 mEq oral tablet, extended release) 3 tabs 12/03/2013 10/23/2014 Oral 30 mEq 3 tabs, Oral, BID, 180 tabs methotrexate(methotrexate 2.5 mg oral tablet) 12/06/2013 See Instructions, TAKE FOUR TABLETS BY MOUTH ONCE A WEEK, 16 tabs methotrexate(methotrexate 2.5 mg oral tablet) 01/07/201405/2014 See Instructions, TAKE FOUR TABLETS BY MOUTH ONCE A WEEK, 16 tabs methotrexate(methotrexate 2.5 mg oral tablet) 02/05/2014 See Instructions, TAKE FOUR TABLETS BY MOUTH ONCE A WEEK, 16 tabs predniSONE(predniSONE 10 mg oral tablet) 02/05/20142013 See Instructions, TAKE ONE TABLET BY MOUTH EVERY DAY, 30 tabs methotrexate(methotrexate 2.5 mg oral tablet) 03/18/2014 See Instructions, TAKE FOUR TABLETS BY MOUTH ONCE A WEEK, 16 tabs predniSONE(predniSONE 10 mg oral tablet) 03/18/20142013 See Instructions, TAKE ONE TABLET BY MOUTH EVERY DAY, 30 tabs predniSONE(predniSONE 10 mg oral tablet) 04/30/20142014 See Instructions, TAKE ONE TABLET BY MOUTH EVERY DAY, 30 tabs methotrexate(methotrexate 2.5 mg oral tablet) 08/12/2014 See Instructions, TAKE FOUR TABLETS BY MOUTH ONCE A WEEK, 16 tabs predniSONE(predniSONE 10 mg oral tablet) 10/28/20142014 See Instructions, TAKE ONE TABLET BY MOUTH ONCE DAILY, 30 tabs omeprazole(omeprazole 20 mg oral delayed release tablet) 1 tabs 12/09/2014 01/10/2015 Oral 20 mg 20 mg=1 tabs, Oral, Daily, 30 tabs, 0 Refill(s ) amLODIPine(amLODIPine 5 mg oral tablet) 1 tabs 12/09/201403/04 Oral 5 mg 5 mg=1 tabs, Oral, Daily, DC 10 mg tablets, 90 tabs, 0 Refill(s) omeprazole(omeprazole 20 mg oral delayed release tablet) 01/10/2015 07/07/2015 See Instructions, 1 tabs Oral Daily, 30 tabs, 5 Refill(s) predniSONE(predniSONE 10 mg oral tablet) 03/04/20152014 See Instructions, TAKE ONE TABLET BY MOUTH ONCE DAILY, 30 tabs amLODIPine(amLODIPine 5 mg oral tablet) 03/04/20152014 See Instructions, 1 tabs Oral Daily,Instr:DC 10 mg tablets, 90 tabs multivitamin(multivitamin) 1 tabs 03/19/2015 Chewed 1 tabs, Chewed, Daily, 0 Refill(s) predniSONE(predniSONE 10 mg oral tablet) 03/31/20152014 See Instructions, TAKE ONE TABLET BY MOUTH ONCE DAILY, 30 tabs predniSONE(predniSONE 10 mg oral tablet) 05/05/20152014 See Instructions, TAKE ONE TABLET BY MOUTH ONCE DAILY, 30 tabs Lactated Ringers Injection(Lactated Ringers Injection 1, 000 mL) 1,000 mL 201405/06/2015 IV 20 mL/hr, IV tamsulosin(Flomax 0.4 mg oral capsule) 1 caps 05/06/20152014 Oral 0.4 mg 0.4 mg=1 caps, Oral, Daily, 30 caps, 0 Refill(s) ciprofloxacin(Cipro 500 mg oral tablet) 1 tabs 05/06/201505/16 Oral 500 mg 500 mg=1 tabs, Oral, q12hr, for 10 days, 8 tabs, 0 Refill(s) hydrALAZINE(hydrALAZINE) 0.5 mL 05/06/2015 05/06/2015 IV Push 10 mg 10 mg=0.5 mL, IV Push, Once HYDROcodone-acetaminophen(HYDROcodone-acetaminophen 5 mg- 325 mg oral tablet) 1 tabs 05/06/2015 05/06/2015 Oral 1 tabs, Oral, q4hr, PRN: Pain Severe (7-10) ondansetron(Zofran) 2 mL 05/06/2015 05/06/2015 IV Push 4 mg 4 mg= 2 mL, IV Push, q6hr, PRN: Nausea or Vomiting Dextrose 5% with 0.45% NaCl and KCl 20 m(Dextrose 5% with 0.45% NaCl and KCl 20 mEq/L 1,000 mL) 1, 000 mL 05/06/2015 05/06/2015 IV 125 mL/hr , IV ibuprofen(ibuprofen) 1 tabs 05/06/2015 05/06/2015 Oral 800 mg 800 mg=1 tabs, Oral, q8hr, PRN: Pain Moderate (4-6) ketorolac(Toradol) 1 mL 05/06/2015 05/06/2015 IV Push 15 mg 15 mg =1 mL, IV Push, q6hr, PRN: Pain Moderate (4-6) acetaminophen(acetaminophen) 2 tabs 05/06/2015 05/06/2015 Oral 650 mg 650 mg=2 tabs, Oral, q4hr, PRN: Other (See Comment) amLODIPine(amLODIPine 5 mg oral tablet) 06/02/20152015 See Instructions, 1 tabs Oral Daily,Instr:DC 10 mg tablets, 90 tabs Lactated Ringers Injection(Lactated Ringers Injection 1, 000 mL) 1,000 mL 201507/03/2015 IV 20 mL/hr, IV midazolam(Versed) 1 mL 07/03/2015 07/03/2015 IV Push 1 mg 1 mg= 1 mL, IV Push, q5min, PRN: Sedation fentaNYL(Sublimaze) 1 mL 07/03/2015 07/03/2015 IV Push 50 mcg 50 mcg=1 mL, IV Push, q5min, PRN: Sedation Sodium Chloride 0.9%(Sodium Chloride 0.9% 500 mL) 500 mL 07/03/2015 07/03/2015 IV KVO, IV, Stop: 07/03/15 14:00:00 [employer]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-acetaminophen(HYDROcodone-acetaminophen 5 mg- 325 mg oral tablet) 1 tabs 07/03/2015 07/03/2015 Oral 1 tabs, Oral, q4hr, PRN: Other (See Comment) ondansetron(Zofran) 2 mL 07/03/2015 07/03/2015 IV Push 4 mg 4 mg= 2 mL, IV Push, q6hr, PRN: Nausea or Vomiting Dextrose 5% with 0.45% NaCl and KCl 20 m(Dextrose 5% with 0.45% NaCl and KCl 20 mEq/L 1,000 mL) 1, 000 mL 07/03/2015 07/03/2015 IV 125 mL/hr , IV ibuprofen(ibuprofen) 1 tabs 07/03/2015 07/03/2015 Oral 800 mg 800 mg=1 tabs, Oral, q8hr, PRN: Other (See Comment) ketorolac(Toradol) 1 mL 07/03/2015 07/03/2015 IV Push 15 mg 15 mg =1 mL, IV Push, q6hr, PRN: Pain Moderate (4-6) acetaminophen(acetaminophen) 2 tabs 07/03/2015 07/03/2015 Oral 650 mg 650 mg=2 tabs, Oral, q4hr, PRN: Other (See Comment) omeprazole(omeprazole 20 mg oral delayed release capsule) 07/07/2015 08/12/2015 See Instructions, TAKE ONE CAPSULE BY MOUTH ONCE DAILY, 30 caps Lactated Ringers Injection(Lactated Ringers Injection 1, 000 mL) 1,000 mL 201508/07/2015 IV 20 mL/hr, IV midazolam(Versed) 1 mL 08/07/2015 08/07/2015 IV Push 1 mg 1 mg= 1 mL, IV Push, q5min, PRN: Sedation ondansetron(Zofran) 2 mL 08/07/2015 08/07/2015 IV Push 4 mg 4 mg= 2 mL, IV Push, Once fentaNYL(Sublimaze) 1 mL 08/07/2015 08/07/2015 IV Push 50 mcg 50 mcg=1 mL, IV Push, q5min, PRN: Sedation Sodium Chloride 0.9%(Sodium Chloride 0.9% 500 mL) 500 mL 08/07/2015 08/07/2015 IV KVO, IV ceFAZolin(ceFAZolin) 20 mL 08/07/2015 08/07/2015 IV Push 2 g 2 g= 20 mL, IV Push, Once, PRN: Other (See Comment) amLODIPine(amLODIPine) 1 tabs 08/07/2015 08/09/2015 Oral 5 mg 5 mg=1 tabs, Oral, Daily HYDROcodone-acetaminophen(HYDROcodone-acetaminophen 5 mg- 325 mg oral tablet) 1 tabs 08/07/2015 08/09/2015 Oral 1 tabs, Oral, q4hr, PRN: Pain Severe (7-10) docusate(Colace) 1 caps 08/07/2015 08/09/2015 Oral 100 mg 100 mg=1 caps, Oral, Daily, PRN: Constipation ondansetron(Zofran) 2 mL 08/07/2015 08/09/2015 IV Push 4 mg 4 mg= 2 mL, IV Push, q6hr, PRN: Nausea or Vomiting Dextrose 5% with 0.45% NaCl and KCl 20 m(Dextrose 5% with 0.45% NaCl and KCl 20 mEq/L 1,000 mL) 1, 000 mL 08/07/2015 08/09/2015 IV 125 mL/hr , IV Al hydroxide/Mg hydroxide/simethicone(Maalox Advanced Maximum Strength oral suspension) 30 mL 08/07/2015 08/09/2015 Oral 30 mL, Oral, q4hr, PRN: GERD/Heartburn oxybutynin(oxybutynin) 1 tabs 08/07/2015 08/09/2015 Oral 5 mg 5 mg=1 tabs, Oral, QID, PRN: Other (See Comment) belladonna-opium(belladonna-opium 16.2 mg-60 mg rectal suppository) 1 supp 04/201608/09/2015 Rectal 1 supp, Rectal, q4hr, PRN: Other ( See Comment) heparin(heparin) 1 mL 08/07/2015 08/09/2015 SubCutaneous 5,000 units 5,000 units=1 mL, SubCutaneous, q8hr ciprofloxacin(Cipro) 1 tabs 08/07/2015 08/09/2015 Oral 500 mg 500 mg=1 tabs, Oral, q12hr diphenhydrAMINE(Benadryl) 1 caps 08/07/2015 08/09/2015 Oral 50 mg 50 mg=1 caps, Oral, Bedtime (once a day), PRN: Sleep LORazepam(Ativan) 1 tabs 08/07/2015 08/09/2015 Oral 1 mg 1 mg=1 tabs, Oral, q12hr, PRN: Anxiety tamsulosin(Flomax) 1 caps 08/07/2015 08/09/2015 Oral 0.4 mg 0.4 mg=1 caps, Oral, Bedtime (once a day) acetaminophen(acetaminophen) 2 tabs 08/07/2015 08/09/2015 Oral 650 mg 650 mg=2 tabs, Oral, q4hr, PRN: Pain Mild (1-3) omeprazole(omeprazole 20 mg oral delayed release capsule) 08/12/2015 10/06/2015 See Instructions, TAKE ONE CAPSULE BY MOUTH ONCE DAILY, 30 caps Lactated Ringers Injection(Lactated Ringers Injection 1, 000 mL) 1,000 mL 201508/28/2015 IV 20 mL/hr, IV, Stop: 08/28/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-acetaminophen(HYDROcodone-acetaminophen 5 mg- 325 mg oral tablet) 1 tabs 08/28/2015 08/28/2015 Oral 1 tabs, Oral, q4hr, PRN: Pain Severe (7-10) ondansetron(Zofran) 2 mL 08/28/2015 08/28/2015 IV Push 4 mg 4 mg= 2 mL, IV Push, q6hr, PRN: Nausea or Vomiting Dextrose 5% with 0.45% NaCl and KCl 20 m(Dextrose 5% with 0.45% NaCl and KCl 20 mEq/L 1,000 mL) 1, 000 mL 08/28/2015 08/28/2015 IV 125 mL/hr , IV ibuprofen(ibuprofen) 1 tabs 08/28/2015 08/28/2015 Oral 800 mg 800 mg=1 tabs, Oral, q8hr, PRN: Pain Moderate (4-6) ketorolac(Toradol) 1 mL 08/28/2015 08/28/2015 IV Push 15 mg 15 mg =1 mL, IV Push, q6hr, PRN: Pain Moderate (4-6) acetaminophen(acetaminophen) 2 tabs 08/28/2015 08/28/2015 Oral 650 mg 650 mg=2 tabs, Oral, q4hr, PRN: Pain Mild (1-3) omeprazole(omeprazole 20 mg oral delayed release capsule) 09/08/2015 10/06/2015 See Instructions, TAKE ONE CAPSULE BY MOUTH ONCE DAILY, 30 caps amLODIPine(amLODIPine 5 mg oral tablet) 09/08/20152015 See Instructions, 1 tabs Oral Daily,Instr:DC 10 mg tablets, 90 tabs omeprazole(omeprazole 20 mg oral delayed release capsule) 10/06/2015 12/02/2015 See Instructions, TAKE ONE CAPSULE BY MOUTH ONCE DAILY, 30 caps ciprofloxacin(Cipro 500 mg oral tablet) 1 tabs 10/14/201510/23 Oral 500 mg 500 mg=1 tabs, Oral, q12hr, for 10 days, 20 tabs, 0 Refill(s) omeprazole(omeprazole 20 mg oral delayed release capsule) 11/17/2015 12/02/2015 See Instructions, TAKE ONE CAPSULE BY MOUTH ONCE DAILY, 30 caps omeprazole(PriLOSEC 20 mg oral delayed release capsule) 1 caps 11/18/2015 06/14/2016 Oral 20 mg 20 mg=1 caps, Oral, BID, 60 caps, 6 Refill(s) amLODIPine(amLODIPine 5 mg oral tablet) 12/08/20152015 See Instructions, TAKE ONE TABLET BY MOUTH ONCE DAILY, 90 tabs mometasone(Asmanex HFA 200 mcg/inh inhalation aerosol) 2 puffs 02/18/2016 Inhalation 2 puffs, Inhalation, BID, Sample X 1 given to patient and instructed on use with spacer, 1 Each, 2 Refill(s) amLODIPine(amLODIPine 5 mg oral tablet) 03/08/20162015 See Instructions, TAKE ONE TABLET BY MOUTH ONCE DAILY, 90 tabs amLODIPine(amLODIPine 5 mg oral tablet) 05/31/20162016 See Instructions, TAKE ONE TABLET BY MOUTH ONCE DAILY, 90 tabs sulfamethoxazole-trimethoprim(Bactrim DS 800 mg-160 mg oral tablet) 1 tabs 08/16/2016 Oral 1 tabs, Oral, Daily, for 7 days, 7 tabs, 0 Refill(s) mometasone(Asmanex HFA 200 mcg/inh inhalation aerosol) 2 puffs 08/09/2016 Inhalation 2 puffs, Inhalation, BID, Sample X 1 given to pt. Instructed on use with spacer Lot #[id number] Exp 07/16/2017, 13 g, 0 Refill(s) amLODIPine(amLODIPine 5 mg oral tablet) 09/06/20162016 See Instructions, TAKE ONE TABLET BY MOUTH ONCE DAILY, 30 tabs, 0 Refill( s) amLODIPine(amLODIPine 5 mg oral tablet) 10/07/2016 See Instructions, TAKE ONE TABLET BY MOUTH ONCE DAILY, 30 tabs Problems Date Dx Coded Attending Type Code Diagnosis Diagnosed By 10/01/2013 Nestor Acharya MD Final 227.1 BENIGN PARATHYROID NEOPL 10/01/2013 Nestor Acharya MD Final V72.63 PRE-PX LABORATORY EXAM 10/01/2013 Nestor Acharya MD Final V72.81 PREOP CV EXAM 10/03/2013 Nestor Acharya MD Final 227.1 BENIGN PARATHYROID NEOPL 10/03/2013 Nestor Acharya MD Final 252.00 HYPERPARATHYROIDISM NOS 10/03/2013 Nestor Acharya MD Final 401.9 HYPERTENSION NOS 10/03/2013 Nestor Acharya MD Final 427.9 CARDIAC DYSRHYTHMIA NOS 05/27/2015 Mario Tomas MD Final D86.9 Sarcoidosis, unspecified 05/27/2015 Mario Tomas MD Final F20.9 Schizophrenia, unspecified 05/27/2015 Mario Tomas MD Final F79 Unspecified intellectual disabilities 05/27/2015 Mario Tomas MD Final I10 Essential (primary) hypertension 05/27/2015 Mario Tomas MD Final K21.9 Gastro-esophageal reflux disease without esophagitis 05/27/2015 Mario Tomas MD Reason N20.0 Calculus of kidney 05/27/2015 Mario Tomas MD Final N20.2 Calculus of kidney with calculus of ureter 07/10/2015 Mario Tomas MD Final D86.0 Sarcoidosis of lung 07/10/2015 Mario Tomas MD Final D86.89 Sarcoidosis of other sites 07/10/2015 Mario Tomas MD Final F20.9 Schizophrenia, unspecified 07/10/2015 Mario Tomas MD Final I10 Essential (primary) hypertension 07/10/2015 Mario Tomas MD Final K21.9 Gastro-esophageal reflux disease without esophagitis 07/10/2015 Mario Tomas MD Reason N20.0 Calculus of kidney 07/10/2015 Mario Tomas MD Final Z53.09 Procedure and treatment not carried out because of other contraindication 08/19/2015 Mario Tomas MD Final F20.9 Schizophrenia, unspecified 08/19/2015 Mario Tomas MD Final I10 Essential (primary) hypertension 08/19/2015 Mario Tomas MD Final K21.9 Gastro-esophageal reflux disease without esophagitis 08/19/2015 Mario Tomas MD Final K25.9 Gastric ulcer, unspecified as acute or chronic, without hemorrhage or perfo 08/19/2015 Mario Tomas MD Reason N20.0 Calculus of kidney 08/21/2015 Mario Tomas MD Reason Z43.6 Encounter for attention to other artificial openings of urinary tract 09/04/2015 Mario Tomas MD Final D86.9 Sarcoidosis, unspecified 09/04/2015 Mario Tomas MD Final F20.9 Schizophrenia, unspecified 09/04/2015 Mario Tomas MD Final F79 Unspecified intellectual disabilities 09/04/2015 Maroi Tomas MD Final I10 Essential (primary) hypertension 09/04/2015 Mario Tomas MD Final I49.9 Cardiac arrhythmia, unspecified 09/04/2015 Mario Tomas MD Final K21.9 Gastro-esophageal reflux disease without esophagitis 09/04/2015 Mario Tomas MD Final N13.5 Crossing vessel and stricture of ureter without hydronephrosis 09/04/2015 Mario Tomas MD Reason N20.0 Calculus of kidney 09/04/2015 Mario Tomas MD Final R91.8 Other nonspecific abnormal finding of lung field 09/04/2015 Mario Tomas MD Final Z79.899 Other halfway (current) drug therapy Procedures Code Description Performed By Performed On 98.51 [ESWL] OF THE KIDNEY, URETER AND/OR BLADDER Alfred Barcenas MD 11/07/2012 21511 EXPLORE PARATHYROID GLANDS Nestor Acharya MD 10/03/2013 39271 Cystourethroscopy, with ureteroscopy and/or pyeloscopy; with lithotripsy in 05/06/2015 40014 Percutaneous nephrostolithotomy or pyelostolithotomy, with or without dilat 07/03/2015 97637 Percutaneous nephrostolithotomy or pyelostolithotomy, with or without dilat 08/07/2015 51328 Cystourethroscopy, with ureteroscopy and/or pyeloscopy; with lithotripsy in 08/28/2015 Results Test Result Range CBC W/DIFF - 11/03/12 12:20 BASOPHIL # 0.0 k/cumm 0.0-0.2 BASOPHIL % 1 % 0-1 EOSINOPHIL # 0.2 k/cumm 0.1-0.5 EOSINOPHIL % 5 % 2-4 GRANULOCYTE # 2.0 k/cumm 2.0-9.0 GRANULOCYTE % 59 % 50-75 LYMPHOCYTE # 0.8 k/cumm 1.0-4.0 LYMPHOCYTE % 23 % 20-30 MEAN CELL HGB 25.2 pg 27.0-33.0 MEAN CELL HGB CONCENTRATION 30.6 g/dL 32.0-37.0 MEAN CELL VOLUME 82.2 fl 80.0-100.0 MONOCYTE # 0.4 k/cumm 0.1-1.0 MONOCYTE % 13 % 4-6 RED BLOOD CELL 6.47 m/cumm 4.00-6.00 RED CELL DISTRIBUTION WIDTH 15.0 % 11.0- 15.6 WHITE BLOOD CELL 3.3 k/cumm 5.0-10.0 HEMOGLOBIN 16.3 gm/dL 14.0-18.0 HEMATOCRIT 53.2 % 40.0-54.0 PLATELET COUNT 114 k/cumm 150-400 METABOLIC PANEL, COMPREHN - 11/03/12 12:20 POTASSIUM 3.8 mmol/L 3.5-5.3 EST GFR (MDRD) 52 mL/min > 59 ANION GAP 7 mmol/L 5-15 GLUCOSE 79 mg/dL 70-99 CALCIUM 9.9 mg/dL 8.5-10.1 BLOOD UREA NITROGEN 17 mg/dL 7-20 CREATININE 1.5 mg/dL 0.8-1.3 SODIUM 145 mmol/L 135-148 CHLORIDE 108 mmol/L 98-110 AST/SGOT 20 Units/L 10-37 ALT/SGPT 24 Units/L < 66 CARBON DIOXIDE 30 mmol/L 21-32 TOTAL PROTEIN 7.0 gm/dL 6.4-8.2 ALBUMIN 3.8 gm/dL 3.4-5.0 BILI TOTAL 0.4 mg/dL 0.0-1.0 ALKALINE PHOSPHATASE TOTAL 91 Units/L 50- 136 Encounters ACCT No. Visit Date/Time Discharge Status Pt. Type Provider Facility Loc./Unit Complaint [id number] 11/07/2012 10:40:00 2012 14:35:00 DIS Outpatient Swapna CHANEL, [facility] [place] [id number] 11/03/2012 11:26:00 2012 11:26:00 DIS Outpatient Swapna CHANEL, [facility] [place]
--- OUTSIDE RECORDS SUMMARY | 2016-11-01 09:44 | XMS REPORT | Referral Summary ---
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, 1 tabs Oral Daily,Instr:DC 10 mg tablets Start Date: 09/08/15 Status: Ordered multivitamin 1 tabs, Chewed, Daily, 0 Refill(s) Start Date: 03/19/15 Status: Ordered PriLOSEC 20 mg oral delayed release capsule 20 mg 1 caps, Oral, BID, # 60 caps, 6 Refill(s), Pharmacy: [id number], 1 caps Oral BID Start Date: 11/18/15 [...] 11/24/10 LT percutaneous nephrolithotomy9 09/29/10 RT percutaneous [id number] 09/01/10 Blood [id number] 1983 Parathyroid 1auto-populated from documented surgical case [...]
--- OUTSIDE RECORDS SUMMARY | 2016-11-01 09:44 | XMS REPORT | Referral Summary ---
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 Role Phone Fran aClixto Primary Care Physician [phone] Encounter Date(s): 08/13/15 - 08/13/15 [facility] [address] [place] [id number] Discharge Disposition: 01-Home or Self Care Attending Physician: Mario Tomas MD Admitting Physician: Mario Tomas MD Vital Signs Most recent to 1 oldest [Reference Range]: Blood Pressure 130/86 mmHg [90-140/60-90 mmHg] (08/13/15 11:07 AM) Problem List Condition Effective Dates Status [...] 10 mg tablets, # 90 tabs, eRx: [facility], 1 tabs Oral Daily,Instr:DC 10 mg tablets Start Date: 06/02/15 Status: Ordered Metoprolol Succinate ER 25 mg oral tablet, extended release 25 mg 1 tabs, Oral, Daily, # 90 tabs, 0 Refill(s), Pharmacy: [facility] Start Date: 07/02/15 Status: Ordered multivitamin 1 tabs, Chewed, Daily, 0 Refill(s) Start Date: 03/19/15 Status: Ordered omeprazole 20 mg oral delayed release capsule See Instructions, TAKE ONE CAPSULE BY MOUTH ONCE DAILY, # 30 caps, eRx: [facility], TAKE ONE CAPSULE BY MOUTH ONCE DAILY Start Date: 08/12/15 Status: Ordered Vitamin D3 5000 intl units oral tablet 5,000 Intl_Units 1 tabs, Oral, Daily, # 100 tabs, 0 Refill(s) Start Date: 10/23/14 Status: Ordered Results No data available for this section Immunizations Vaccine Date Refusal Reason influenza virus vaccine, inactivated 03/19/15 influenza virus vaccine, inactivated1 04/05/14 1Location History: See scanned document Procedures Procedure Date Related Diagnosis Body Site Nephrostolithotomy Percutaneous (Right)1 08/07/15 Nephrostolithotomy Percutaneous (Left)2 07/03/15 Cystoscopy Retrograde Pyelogram (Left)3 05/06/15 Cystoscopy Ureteroscopy (Left)4 05/06/15 Colonoscopy5 12/27/11 Esophagogastroduodenoscopy6 12/27/11 LT Ureteroscopy 02/17/11 Pyeloscopy w/laser lithotripsy 02/17/11 Bronchoscopy7 02/03/11 Ld ESWL w/ cystoscopy/remove j-stent 11/24/10 LT percutaneous nephrolithotomy8 09/29/10 RT percutaneous nephrolithotomy9 09/01/10 Blood [id number] 1983 Parathyroid 1auto-populated from documented surgical case [...] Visit Note Author: Mario Tomas MD Date: 08/13/15 Assessment/Plan Kidney stones
--- OUTSIDE RECORDS SUMMARY | 2016-11-01 09:44 | XMS REPORT | Continuity of Care Document ---
Author Author Silvia Marino MA [facility] Ambulatory Address 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 Name Role Phone Min Calixto PP Unavailable Payers Payer name Insurance type Covered constitution party ID Authorization(s) Unknown Problems Condition Effective Dates (start - stop) Clinical Status Hyperparathyroidism, unspecified - *Chronic Deviated nasal septum - *Stable Sarcoidosis - Chronic Sarcoidosis - Chronic Hypertension, Benign - *Controlled Sarcoidosis of lung [...] Cough - *Worse Hyperparathyroidism, unspecified - *Chronic Sarcoidosis - Chronic Calculus of kidney - *Chronic Parathyroid adenoma - *Poor control Sarcoidosis - Chronic Calculus of kidney - Recurrent Sarcoidosis - *Chronic Calculus of kidney - *Chronic MENTAL PROBLEMS NEC - BLOOD [...] route every day 25 MG - Active Immunizations Vaccine Date Status Comments Unknown Results Test Name Date and Time Measure Units Reference Range Abnormal Flag Comments Unknown Vital Signs Date / Time: Height Weight Pulse Rate Blood Pressure Temperature /12:49:00 73.00 in 250.00 lbs 97.5 F Procedures Procedure Date Unknown Encounters Encounter Location Date Patient Visit [facility] ENT Patient Visit [facility] Mur Card Patient Visit [facility] Mur Card Patient Visit [facility] New FM Patient Visit [facility] Mur Card Patient Visit [facility] Patient Visit [facility] Patient Visit [facility] Patient Visit [facility] Mur Endo Patient Visit [facility] Endo Patient Visit [facility] ENT Patient Visit [facility] Mur Pulmo Patient Visit [facility] Mur Pulmo Patient Visit [facility] ENT Patient Visit [facility] Urology Patient Visit [facility] Endo Patient Visit [facility] Urology Patient Visit Conversion Advance Directives Directive Effective Date Unknown
--- OUTSIDE RECORDS SUMMARY | 2016-11-01 09:44 | XMS REPORT | Referral Summary ---
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 Role Phone Fran Calixto Primary Care Physician [phone] Encounter VC Date(s): 08/15/15 - 08/15/15 [facility] [address] [place], [place] [address] Discharge Disposition: 01-Home or Self Care Attending Physician: Mario Tomas MD Admitting Physician: Mario Tomas MD Vital Signs No data available for [...] 10 mg tablets, # 90 tabs, eRx: [facility], 1 tabs Oral Daily,Instr:DC 10 mg tablets Start Date: 06/02/15 Status: Ordered Metoprolol Succinate ER 25 mg oral tablet, extended release 25 mg 1 tabs, Oral, Daily, # 90 tabs, 0 Refill(s), Pharmacy: [facility] Start Date: 07/02/15 Status: Ordered multivitamin 1 tabs, Chewed, Daily, 0 Refill(s) Start Date: 03/19/15 Status: Ordered omeprazole 20 mg oral delayed release capsule See Instructions, TAKE ONE CAPSULE BY MOUTH ONCE DAILY, # 30 caps, eRx: [facility], TAKE ONE CAPSULE BY MOUTH [...] Procedures Procedure Date Related Diagnosis Body Site Removal and replacement of externally 08/15/15 accessible nephroureteral catheter (eg, external/internal stent) requiring fluoroscopic guidance, including radiological supervision and interpretation Nephrostolithotomy Percutaneous (Right)1 08/07/15 Nephrostolithotomy Percutaneous (Left)2 07/03/15 Cystoscopy Retrograde Pyelogram (Left)3 05/06/15 Cystoscopy Ureteroscopy (Left)4 05/06/15 Colonoscopy5 12/27/11 Esophagogastroduodenoscopy6 12/27/11 LT Ureteroscopy 02/17/11 Pyeloscopy w/laser lithotripsy 02/17/11 Bronchoscopy7 02/03/11 Ld ESWL w/ cystoscopy/remove j-stent 11/24/10 LT percutaneous nephrolithotomy8 09/29/10 RT percutaneous nephrolithotomy9 09/01/10 Blood [id number] 1983 Parathyroid 1auto-populated from documented surgical case [...]
--- OUTSIDE RECORDS SUMMARY | 2016-11-01 09:44 | XMS REPORT | Referral Summary ---
Author Author [facility] Organization [facility] Address Unknown Phone Unavailable Care Team Providers Care Channel Cementer Name Role Phone Fran Calixto Primary Care Physician [phone] Encounter Date(s): 03/31/16 - 03/31/16 [facility] [address] [place] [address] Discharge Diagnosis: Sarcoidosis (disorder) Discharge Diagnosis: Dyspnea Discharge Diagnosis: Asthma Discharge Disposition: 01-Home or Self Care Attending Physician: Norma Yuan MD Admitting Physician: Norma Yuan MD Vital Signs Most recent to 1 oldest [Reference Range]: Peripheral Pulse 57 bpm Rate [60-100 bpm] *LOW* (03/31/16 1:11 PM) Respiratory Rate 20 br/min [14-20 br/min] (03/31/16 1:11 PM) Blood Pressure 124/64 mmHg [90-140/60-90 mmHg] (03/31/16 1:11 PM) SpO2 97 % (03/31/16 1:11 PM) Problem List Condition Effective Dates Status [...] amLODIPine 5 mg oral tablet See Instructions, TAKE ONE TABLET BY MOUTH ONCE DAILY, # 90 tabs, eRx: [facility], TAKE ONE TABLET BY MOUTH ONCE DAILY Start Date: 03/08/16 Status: Ordered hydrochlorothiazide 12.5 mg oral capsule See Instructions, TAKE ONE CAPSULE BY MOUTH ONCE DAILY, # 30 caps, eRx: [facility]28, TAKE ONE CAPSULE BY MOUTH ONCE DAILY Start Date: 03/15/16 Status: Ordered Metoprolol Succinate ER 25 mg oral tablet, extended release See Instructions, TAKE ONE TABLET BY MOUTH ONCE DAILY, # 90 tabs, eRx: [facility]28, TAKE ONE TABLET BY MOUTH ONCE DAILY Start Date: 02/23/16 Status: Ordered multivitamin 1 tabs, Chewed, Daily, 0 Refill(s) Start Date: 03/19/15 Status: Ordered PriLOSEC 20 mg oral delayed release capsule 20 mg 1 caps, Oral, BID, # 60 caps, 6 Refill(s), Pharmacy: [facility], 1 caps Oral BID Start Date: 11/18/15 [...] 11/24/10 LT percutaneous nephrolithotomy9 09/29/10 RT percutaneous [id number] 09/01/10 Blood [id number] 1984 Parathyroid 1auto-populated from documented surgical case 2auto-populated [...]
--- OUTSIDE RECORDS SUMMARY | 2016-11-01 09:44 | XMS REPORT | Referral Summary ---
Author Author [facility] Organization [facility] Address Unknown Phone Unavailable Care Team Providers Care Marine Reporter Name Role Phone Fran Calixto Primary Care Physician [phone] Encounter VC Date(s): 03/19/15 - 03/19/15 [facility] [address] [place] [address] [place] [address]- Discharge Diagnosis: Essential hypertension Discharge Diagnosis: PVC (premature ventricular contraction) Discharge Diagnosis: Palpitation Discharge Diagnosis: Over weight Discharge Diagnosis: Sarcoidosis Discharge Diagnosis: History of kidney stones Discharge Diagnosis: History of hyperparathyroidism Discharge Disposition: -Home or Self Care Attending Physician: Eric Salcedo MD Admitting Physician: Eric Salcedo MD Referring Physician: Min Calixto MD Vital Signs Most recent to 1 oldest [Reference Range]: Peripheral Pulse 60 bpm Rate [60-100 bpm] (03/19/15 1:35 PM) Blood Pressure 140/100 mmHg [90-140/60-90 mmHg] (03/19/15 1:35 PM) Problem List Condition Effective Dates Status [...] 10 mg tablets, # 90 tabs, eRx: [facility], 1 tabs Oral Daily,Instr:DC 10 mg tablets Start Date: 06/02/15 Status: Ordered amLODIPine 5 mg oral tablet See Instructions, 1 tabs Oral Daily,Instr:DC 10 mg tablets, # 90 tabs, eRx: [facility] 2428, 1 tabs Oral Daily,Instr:DC 10 mg tablets Start Date: 09/08/15 Status: Ordered Metoprolol Succinate ER 25 mg oral tablet, extended release 25 mg 1 tabs, Oral, Daily, # 90 tabs, 0 Refill(s), Pharmacy: [place] [facility] [id number] Start Date: 07/02/15 Status: Ordered multivitamin 1 tabs, Chewed, Daily, 0 Refill(s) Start Date: 03/19/15 Status: Ordered omeprazole 20 mg oral delayed release capsule See Instructions, TAKE ONE CAPSULE BY MOUTH ONCE DAILY, # 30 caps, eRx: [facility]28, TAKE ONE CAPSULE BY MOUTH ONCE DAILY Start Date: 09/08/15 Status: Ordered omeprazole 20 mg oral delayed release capsule See Instructions, TAKE ONE CAPSULE BY MOUTH ONCE DAILY, # 30 caps, eRx: [facility]28, TAKE ONE CAPSULE [...] 11/24/10 LT percutaneous nephrolithotomy9 09/29/10 RT percutaneous [id number] 09/01/10 Blood [id number] 1983 Parathyroid 1auto-populated from documented surgical case [...] Extracted from: Title: Office Visit Note Author: Eric Salcedo MD Date: 03/19/15 Assessment/Plan 1.Essential hypertension 2.Palpitation 3.History of kidney stones 4.History of hyperparathyroidism 5.Sarcoidosis 6.Over weight 7.PVC (premature ventricular contraction) Discussion: From the standpoint of his cardiac status and his rhythm,he appears to be doing well. It's possible that he haswhitecoat hypertension to account for his blood pressure elevation today. I advised him and his mother to check his blood pressure perhaps twice a week and to let us know if it is consistently over 146 systolic. As long as he is continuing to do well, perhaps yearly visits are appropriate but we can see him any time if he has trouble and I made sure that he has are contact numbers.
--- OUTSIDE RECORDS SUMMARY | 2016-11-01 09:44 | XMS REPORT | Referral Summary ---
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 Providers Care Meat Trimmer Name Role Phone Fran Calixto Primary Care Physician [phone] Encounter VC Date(s): 09/15/15 - 09/15/15 [facility] [address] [place] [id number] Discharge Disposition: 01-Home or Self Care Attending Physician: Mario Tomas MD Admitting Physician: Mario Tomas MD Vital Signs Most recent to 1 oldest [Reference Range]: Blood Pressure 124/78 mmHg [90-140/60-90 mmHg] (09/15/15 11:02 AM) Problem List Condition Effective Dates Status [...] 10 mg tablets, # 90 tabs, eRx: [facility], 1 tabs Oral Daily,Instr:DC 10 mg tablets Start Date: 06/02/15 Status: Ordered amLODIPine 5 mg oral tablet See Instructions, 1 tabs Oral Daily,Instr:DC 10 mg tablets, # 90 tabs, eRx: [facility], 1 tabs Oral Daily,Instr:DC 10 mg tablets Start Date: 09/08/15 Status: Ordered Metoprolol Succinate ER 25 mg oral tablet, extended release 25 mg 1 tabs, Oral, Daily, # 90 tabs, 0 Refill(s), Pharmacy: [facility] 2428 Start Date: 07/02/15 Status: Ordered multivitamin 1 tabs, Chewed, Daily, 0 Refill(s) Start Date: 03/19/15 Status: Ordered omeprazole 20 mg oral delayed release capsule See Instructions, TAKE ONE CAPSULE BY MOUTH ONCE DAILY, # 30 caps, eRx: [facility] 2428, TAKE ONE CAPSULE BY MOUTH ONCE DAILY Start Date: 09/08/15 Status: Ordered omeprazole 20 mg oral delayed release capsule See Instructions, TAKE ONE CAPSULE BY MOUTH ONCE DAILY, # 30 caps, eRx: [facility] 2428, TAKE ONE CAPSULE BY MOUTH [...] 11/24/10 LT percutaneous nephrolithotomy9 09/29/10 RT percutaneous [id number] 09/01/10 Blood [id number] 1983 Parathyroid 1auto-populated from documented surgical case [...]
--- OUTSIDE RECORDS SUMMARY | 2016-11-01 09:44 | XMS REPORT | Referral Summary ---
Author Author [facility] Organization [facility] Address Unknown Phone Unavailable Care Team Providers Care Sucker Machine Operator Name Role Phone Fran Calixto Primary Care Physician [phone] Encounter VC Date(s): 04/29/15 - 04/29/15 [facility] [address] [place] [address] Discharge Disposition: 01-Home or Self Care Attending Physician: Mario Tomas MD Admitting Physician: Mario Tomas MD Vital Signs Most recent to 1 oldest [Reference Range]: Respiratory Rate 18 br/min [14-20 br/min] (04/29/15 10:20 AM) Blood Pressure 130/70 mmHg [90-140/60-90 mmHg] (04/29/15 10:20 AM) Problem List Condition Effective Dates Status [...] 10 mg tablets, # 90 tabs, eRx: [facility], 1 tabs Oral Daily,Instr:DC 10 mg tablets Start Date: 03/04/15 Status: Ordered hydrochlorothiazide 12.5 mg oral capsule See Instructions, 1 caps Oral Daily, # 30 Each, 10 Refill(s), eRx: [facility]28, 1 caps Oral Daily Start Date: 03/31/15 Status: Ordered Metoprolol Succinate ER 25 mg oral tablet, extended release 1 tabs, Oral, Daily, # 90 tabs, 3 Refill(s), Pharmacy: [facility] 242 Start Date: 06/24/14 Status: Ordered multivitamin 1 tabs, Chewed, Daily, 0 Refill(s) Start Date: 03/19/15 Status: Ordered omeprazole 20 mg oral delayed release tablet See Instructions, 1 tabs Oral Daily, # 30 tabs, 5 Refill(s), eRx: [facility] 2428, 1 tabs Oral Daily Start Date: 01/10/15 Status: Ordered predniSONE 10 mg oral tablet See Instructions, TAKE ONE TABLET BY MOUTH ONCE DAILY, # 30 tabs, eRx: [facility] 2428, TAKE ONE TABLET BY [...]
--- OUTSIDE RECORDS SUMMARY | 2016-11-01 09:44 | XMS REPORT | Referral Summary ---
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 Providers Care Headstart Teacher Name Role Phone Fran Calixto Primary Care Physician [phone] Encounter VC Date(s): 01/21/16 - 01/21/16 [facility] [address] [place] [address] Discharge Diagnosis: Renal stone Discharge Disposition: 01-Home or Self Care Attending Physician: aMrio Tomas MD Admitting Physician: Mario Tomas MD Referring Physician: Mario Tomas MD Vital Signs Most recent to 1 oldest [Reference Range]: Blood Pressure 130/80 mmHg [90-140/60-90 mmHg] (01/21/16 1:52 PM) Problem List Condition Effective Dates Status [...] MOUTH ONCE DAILY, # 90 tabs, eRx: [facility], TAKE ONE TABLET BY MOUTH ONCE DAILY Start Date: 12/08/15 Status: Ordered multivitamin 1 tabs, Chewed, Daily, 0 Refill(s) Start Date: 03/19/15 Status: Ordered PriLOSEC 20 mg oral delayed release capsule 20 mg 1 caps, Oral, BID, # 60 caps, 6 Refill(s), Pharmacy: [facility]28, 1 caps Oral BID Start Date: [...] 11/24/10 LT percutaneous nephrolithotomy9 09/29/10 RT percutaneous [id number] 09/01/10 Blood [id number] 1983 Parathyroid 1auto-populated from documented surgical case [...] Eggplant. Escarole. Leeks. Okra. Parsley. Rutabagas. Spinach. Guatemalan chard. Tomato paste. Fried potatoes. Sweet potatoes. [...] or vegetables. Other: Carob. Chocolate. Fruitcake. Marmalades. This information is not intended to replace advice given to you by your health care provider. Make sure you discuss any questions you have with your health care provider. Document Released: 10/08/2011 Document Revised: 06/18/2014 Document Reviewed: Exit[employer] Patient Information 2016 [place], [facility]. No follow up information was provided. Extracted from: Title: Office Visit Note Author: Mario Tomas MD Date: 01/21/16 Assessment/Plan 1.Renal stone
--- OUTSIDE RECORDS SUMMARY | 2016-11-01 09:44 | XMS REPORT | Referral Summary ---
Author Author [facility] Organization [facility] Address Unknown Phone Unavailable Care Team Providers Care Glassware Finisher Name Role Phone Fran Calixto Primary Care Physician [phone] Encounter Date(s): 08/09/16 - 08/09/16 [facility] [address] [place] [id number] Discharge Diagnosis: Asthma, mild persistent Discharge Diagnosis: Sarcoidosis (disorder) Discharge Diagnosis: Cellulitis Discharge Disposition: 01-Home or Self Care Attending Physician: Norma Yuan MD Admitting Physician: Norma Yuan MD Vital Signs Most recent to 1 oldest [Reference Range]: Peripheral Pulse 58 bpm Rate [60-100 bpm] *LOW* (08/09/16 2:37 PM) Respiratory Rate 18 br/min [14-20 br/min] (08/09/16 2:37 PM) Blood Pressure 136/82 mmHg [90-140/60-90 mmHg] (08/09/16 2:37 PM) SpO2 96 % (08/09/16 2:37 PM) Problem List Condition Effective Dates Status [...] MOUTH ONCE DAILY, # 90 tabs, eRx: [facility]28, TAKE ONE TABLET BY MOUTH ONCE DAILY Start Date: 05/31/16 Status: Ordered Asmanex HFA 200 mcg/inh inhalation aerosol 2 puffs, Inhalation, BID, Sample X 1 given to pt. Instructed on use with spacer Lot #[id number] Exp 07/16/2017, # 13 g, 0 Refill(s), samples given to patient (Rx ) Start Date: 08/09/16 Status: Ordered Bactrim DS 800 mg-160 mg oral tablet 1 tabs, Oral, Daily, X 7 days, # 7 tabs, 0 Refill(s), Pharmacy: [facility] 242 Start Date: 08/09/16 Stop Date: 08/16/16 Status: Ordered hydrochlorothiazide 12.5 mg oral capsule See Instructions, TAKE ONE CAPSULE BY MOUTH ONCE DAILY, # 30 caps, 10 Refill(s) , eRx: [facility]28, TAKE ONE CAPSULE BY MOUTH ONCE DAILY Start Date: 04/12/16 Status: Ordered Metoprolol Succinate ER 25 mg oral tablet, extended release See Instructions, TAKE ONE TABLET BY MOUTH ONCE DAILY, # 90 tabs, eRx: [facility]28, TAKE ONE TABLET BY MOUTH ONCE DAILY Start Date: 05/31/16 Status: Ordered multivitamin 1 tabs, Chewed, Daily, 0 Refill(s) Start Date: 03/19/15 Status: Ordered PriLOSEC 20 mg oral delayed release capsule 20 mg 1 caps, Oral, BID, # 60 caps, 6 Refill(s), Pharmacy: [facility]28, 1 caps Oral BID Start Date: 06/14/16 Status: Ordered Vitamin D3 5000 intl units oral tablet 5,000 Intl_Units 1 tabs, Oral, Daily, # 100 tabs, 0 Refill(s) Start Date: 10/23/14 Status: Ordered Results No data available for this section Immunizations Given and Recorded Vaccine Date Status Refusal Reason influenza virus vaccine, inactivated 03/19/15 Recorded influenza virus vaccine, inactivated1 04/05/14 Recorded 1Location History: See scanned document Procedures Procedure Date Related Diagnosis Body Site Cystoscopy Ureteroscopy1 08/28/15 Nephrostolithotomy Percutaneous (Right)2 08/07/15 Nephrostolithotomy Percutaneous (Left)3 07/03/15 Cystoscopy Retrograde Pyelogram (Left)4 05/06/15 Cystoscopy Ureteroscopy (Left)5 05/06/15 Colonoscopy6 12/27/11 Esophagogastroduodenoscopy7 12/27/11 LT Ureteroscopy 02/17/11 Pyeloscopy w/laser lithotripsy 02/17/11 Bronchoscopy8 02/03/11 Ld ESWL w/ cystoscopy/remove j-stent 11/24/10 LT percutaneous nephrolithotomy9 09/29/10 RT percutaneous [id number] 09/01/10 Blood [id number] 1984 Parathyroid 1auto-populated from documented surgical case [...] Office Visit Note Author: Norma Yuan Date: 08/09/16 Kera CHANEL Assessment/Plan Very pleasant 55-year-old gentleman here for follow-up 1.Asthma, mild persistent Patient has shown improvement however he continues to have some cough with increase his Asmanex dose to 200 g twice daily Additionally patient reports he has hiccupscould be fromtechniqueof inhalation. We'll adda spacer 2.Sarcoidosis (disorder) Biopsy proven according to the patient 5 years ago Would avoid steroids or any steroid sparing agent at this point as he is showing clinical improvement Continue withsteroids as mentioned above We'll follow-up with pulmonary function testing next visit 3.Cellulitis Patient haserythema of the left hand witha nodule atthe interphalangeal joint of the middle finger from an injury sustained. We'll treat the patient for potential cellulitis with Bactrim patient was advised to follow-up with his primary care physician if that does not resolve Follow-up in 6 months
--- OUTSIDE RECORDS SUMMARY | 2016-11-01 09:44 | XMS REPORT | Referral Summary ---
Author Author [facility] Organization [facility] Address Unknown Phone Unavailable Care Team Providers Care Iron Worker Foreman Name Role Phone Fran Calixto Primary Care Physician [phone] Encounter VC Date(s): 11/18/15 - 11/18/15 [facility] [address] [place] [address] Discharge Diagnosis: JOYCE (dyspnea on exertion) Discharge Diagnosis: Cough Discharge Diagnosis: Restrictive pattern present on pulmonary function testing Discharge Disposition: 01-Home or Self Care Attending Physician: Norma Yuan MD Admitting Physician: Norma Yuan MD Vital Signs Most recent to 1 oldest [Reference Range]: Peripheral Pulse 59 bpm Rate [60-100 bpm] *LOW* (11/18/15 11:27 AM) Respiratory Rate 22 br/min [14-20 br/min] *HI* (11/18/15 11:27 AM) Blood Pressure 118/82 mmHg [90-140/60-90 mmHg] (11/18/15 11:27 AM) Mean Arterial 94 mmHg Pressure, Cuff (11/18/15 11:27 AM) SpO2 97 % (11/18/15 11:27 AM) Problem List Condition Effective Dates Status [...] 10 mg tablets, # 90 tabs, eRx: [facility], 1 tabs Oral Daily,Instr:DC 10 mg tablets Start Date: 06/02/15 Status: Ordered amLODIPine 5 mg oral tablet See Instructions, 1 tabs Oral Daily,Instr:DC 10 mg tablets, # 90 tabs, eRx: [facility]28, 1 tabs Oral Daily,Instr:DC 10 mg tablets Start Date: 09/08/15 Status: Ordered Metoprolol Succinate ER 25 mg oral tablet, extended release See Instructions, 1 tabs Oral Daily, # 90 tabs, eRx: [facility]28, 1 tabs Oral Daily Start Date: 09/29/15 Status: Ordered multivitamin 1 tabs, Chewed, Daily, 0 Refill(s) Start Date: 03/19/15 Status: Ordered omeprazole 20 mg oral delayed release capsule See Instructions, TAKE ONE CAPSULE BY MOUTH ONCE DAILY, # 30 caps, eRx: [facility]28, TAKE ONE CAPSULE BY MOUTH ONCE DAILY Start Date: 11/17/15 Status: Ordered omeprazole 20 mg oral delayed release capsule See Instructions, TAKE ONE CAPSULE BY MOUTH ONCE DAILY, # 30 caps, eRx: [facility]28, TAKE ONE CAPSULE BY MOUTH ONCE DAILY Start Date: 10/06/15 Status: Ordered PriLOSEC 20 mg oral delayed release capsule 20 mg 1 caps, Oral, BID, # 60 caps, 6 Refill(s), Pharmacy: [facility] 2428, 1 caps Oral BID Start Date: [...] 11/24/10 LT percutaneous nephrolithotomy9 09/29/10 RT percutaneous [id number] 09/01/10 Blood [id number] 1983 Parathyroid 1auto-populated from documented surgical case [...] Office Visit Note Author: Norma Yuan Date: 11/18/15 Kera CHANEL Assessment/Plan 1.Cough Cough. Could be either related toto potential underlying sarcoidosis versus below, causes such as postnasal drip and acid reflux disease. At this point patient does describe symptoms of acid reflux disease and postnasal drip. We'll treat with Flonase twice daily for the next 3 months in addition to Prilosec twice daily for next 3 months. Patient does not show any improvement in his cough or shortness of breath andthe next step would be a more aggressive treatment of potential sarcoidosis with prednisone and potentially an immunosuppressive agent. 2.Restrictive pattern present on pulmonary function testing Could be secondary to sarcoidosis now much significant change in his lung volumes the spirometry does show significant decline. His diffusion capacity corrected to hemoglobin is slightly reduced. We'll continue follow-up every year with another PFT 3.JOYCE (dyspnea on exertion) Unclear if the patient coughs and has shortness of breath or he has shortness of breathper se. We'll assess with the above intervention the patient continues to have shortness of breath and the next step would be to treat with prednisone and then immunosuppressive agent Orders: Diffusing [place] [address] [facility] [id number]
--- OUTSIDE RECORDS SUMMARY | 2016-11-01 09:44 | XMS REPORT | Referral Summary ---
Author Author [facility] Organization [facility] Address Unknown Phone Unavailable Care Team Providers Care Charge Aide Name Role Phone Fran Calixto Primary Care Physician [phone] Encounter VC Date(s): 08/28/15 - 08/28/15 [facility] [address] [facility] [place], [place] [address] Discharge Disposition: 01-Home or Self Care Attending Physician: Mario Tomas MD Admitting Physician: Mario Tomas MD Vital Signs Most recent to 1 oldest [Reference Range]: Temperature Skin 36.0 degC [36-37 degC] (08/28/15 12:15 PM) Temperature Temporal 36.2 degC Artery [36.3-37.8 *LOW* degC] (08/28/15 11:34 AM) Apical Heart Rate 82 bpm [60-100 bpm] (08/28/15 8:52 AM) Heart Rate Monitored 89 bpm [60-100 bpm] (08/28/15 12:15 PM) Respiratory Rate 16 br/min [14-20 br/min] (08/28/15 12:15 PM) Blood Pressure 117/99 mmHg [90-140/60-90 mmHg] (08/28/15 12:15 PM) Mean Arterial 105 mmHg Pressure, Cuff (08/28/15 12:15 PM) SpO2 97 % (08/28/15 12:15 PM) Problem List Condition Effective Dates Status [...] 10 mg tablets, # 90 tabs, eRx: [facility], 1 tabs Oral Daily,Instr:DC 10 mg tablets Start Date: 06/02/15 Status: Ordered Metoprolol Succinate ER 25 mg oral tablet, extended release 25 mg 1 tabs, Oral, Daily, # 90 tabs, 0 Refill(s), Pharmacy: [facility]28 Start Date: 07/02/15 Status: Ordered multivitamin 1 tabs, Chewed, Daily, 0 Refill(s) Start Date: 03/19/15 Status: Ordered omeprazole 20 mg oral delayed release capsule See Instructions, TAKE ONE CAPSULE BY MOUTH ONCE DAILY, # 30 caps, eRx: [facility], TAKE ONE CAPSULE BY MOUTH ONCE DAILY Start Date: 08/12/15 Status: Ordered Vitamin D3 5000 intl units oral tablet 5,000 Intl_Units 1 tabs, Oral, Daily, # 100 tabs, 0 Refill(s) Start Date: 10/23/14 Status: Ordered Results Chemistry Most recent to 1 oldest [Reference Range]: Blood Glucose, 81 mg/dL Capillary [70-100 (08/28/15 9:08 AM) mg/dL] Immunizations Vaccine Date Refusal Reason influenza virus [...] 11/24/10 LT percutaneous nephrolithotomy9 09/29/10 RT percutaneous [id number] 09/01/10 Blood 1983 Parathyroid 1auto-populated from documented surgical case [...]
--- OUTSIDE RECORDS SUMMARY | 2016-11-01 09:44 | XMS REPORT | Referral Summary ---
Author Author [facility] Organization [facility] Address Unknown Phone Unavailable Care Team Providers Care Credit Coordinator Name Role Phone Fran Calixto Primary Care Physician [phone] Encounter VC Date(s): 07/03/15 - 07/03/15 [facility] [address] [place], [place] [address] Discharge Disposition: -Home or Self Care Attending Physician: Mario Tomas MD Admitting Physician: Mario Tomas MD Vital Signs Most recent to 1 oldest [Reference Range]: Temperature Skin 36 degC [36-37 degC] (07/03/15 10:00 AM) Temperature Temporal 35.6 degC Artery [36.3-37.8 *LOW* degC] (07/03/15 12:38 PM) Peripheral Pulse 72 bpm Rate [60-100 bpm] (07/03/15 10:50 AM) Heart Rate Monitored 77 bpm [60-100 bpm] (07/03/15 12:38 PM) Respiratory Rate 18 br/min [14-20 br/min] (07/03/15 12:38 PM) Blood Pressure 126/102 mmHg [90-140/60-90 mmHg] (07/03/15 12:38 PM) Mean Arterial 123 mmHg Pressure, Cuff (07/03/15 12:30 PM) SpO2 94 % (07/03/15 12:38 PM) Problem List Condition Effective Dates Status [...] 10 mg tablets, # 90 tabs, eRx: [facility], 1 tabs Oral Daily,Instr:DC 10 mg tablets Start Date: 06/02/15 Status: Ordered Metoprolol Succinate ER 25 mg oral tablet, extended release 25 mg 1 tabs, Oral, Daily, # 90 tabs, 0 Refill(s), Pharmacy: [facility] 242 Start Date: 07/02/15 Status: Ordered multivitamin 1 tabs, Chewed, Daily, 0 Refill(s) Start Date: 03/19/15 Status: Ordered omeprazole 20 mg oral delayed release tablet See Instructions, 1 tabs Oral Daily, # 30 tabs, 5 Refill(s), eRx: [facility]28, 1 tabs Oral Daily Start Date: 01/10/15 Status: Ordered Vitamin D3 5000 intl units oral tablet Oral, Daily, # 100 tabs, 0 Refill(s) Start Date: 10/23/14 Status: Ordered Results Hematology Most recent to 1 oldest [Reference Range]: WBC [4.8-10.8 3.0 10*3/uL 10*3/uL] *LOW* (07/03/15 6:42 AM) RBC [4.60-6.20] 5.83 (07/03/15 6:42 AM) Hgb [14.0-18.0 16.2 gm/dL gm/dL] (07/03/15 6:42 AM) Hct [42.0-52.0 %] 51.6 % (07/03/15 6:42 AM) MCV [82.0-99.0 fL] 88.5 fL (07/03/15 6:42 AM) MCH [27.0-32.0 pg] 27.8 pg (07/03/15 6:42 AM) MCHC [32.0-36.0 31.4 gm/dL gm/dL] *LOW* (07/03/15 6:42 AM) RDW [11.5-14.5 %] 13.4 % (07/03/15 6:42 AM) Platelet [150-400 126 10*3/uL 10*3/uL] *LOW* (07/03/15 6:42 AM) MPV [9.4-12.3 fL] 10.4 fL (07/03/15 6:42 AM) Immature 0.7 % Granulocytes (07/03/15 6:42 AM) [0.0-1.0 %] Neutrophils [51-75 39 % %] *LOW* (07/03/15 6:42 AM) Lymphocytes [20-46 27 % %] (07/03/15 6:42 AM) Monocytes [4-11 %] 20 % *HI* (07/03/15 6:42 AM) Eosinophils [0-4 %] 8 % *HI* (07/03/15 6:42 AM) Basophils [0-2 %] 5 % *HI* (07/03/15 6:42 AM) Neutro Absolute 1.18 10*3 [1.90-7.00 10*3] *LOW* (07/03/15 6:42 AM) Lymph Absolute 0.83 10*3 [0.80-3.30 10*3] (07/03/15 6:42 AM) [place] Absolute 0.61 10*3 [0.30-1.00 10*3] (07/03/15 6:42 AM) Eos Absolute 0.25 10*3 [0.00-0.50 10*3] (07/03/15 6:42 AM) Baso Absolute 0.15 10*3 [0.00-0.20 10*3] (07/03/15 6:42 AM) Nucleated RBC 0.0 /100 WBC Automated [0 /100 (07/03/15 6:42 AM) WBC] Coagulation Most recent to 1 oldest [Reference Range]: INR [0.9-1.2] 1.1 (07/03/15 6:42 AM) PTT [25.0-35.0 30.7 seconds seconds] (07/03/15 6:42 AM) Chemistry Most recent to 1 oldest [Reference Range]: Sodium Lvl [136-144 142 mEq/L mEq/L] (07/03/15 6:42 AM) Potassium Lvl 3.2 mEq/L [3.6-5.1 mEq/L] *LOW* (07/03/15 6:42 AM) Chloride [99-109 107 mEq/L mEq/L] (07/03/15 6:42 AM) CO2 [22-32 mEq/L] 25 mEq/L (07/03/15 6:42 AM) AGAP [3-20] 10 (07/03/15 6:42 AM) BUN [4-20 mg/dL] 16 mg/dL (07/03/15 6:42 AM) Glucose Lvl [70-100 106 mg/dL mg/dL] *HI* (07/03/15 6:42 AM) Creatinine Lvl 1.38 mg/dL [0.64-1.27 mg/dL] *HI* (07/03/15 6:42 AM) eGFR [>60] 53 1 *ABN* (07/03/15 6:42 AM) Calcium Lvl 8.9 mg/dL [8.6-10.0 mg/dL] (07/03/15 6:42 AM) Blood Glucose, 100 mg/dL Capillary [70-100 (07/03/15 6:55 AM) mg/dL] 1Result Comment: Multiply eGFR results by 1.21 for race. Urinalysis Most recent to 1 oldest [Reference Range]: UA Color Yellow (07/03/15 6:42 AM) UA Appear Clear (07/03/15 6:42 AM) UA pH [5.0-8.0] 6.0 (07/03/15 6:42 AM) UA Leuk Est Negative [Negative] (07/03/15 6:42 AM) UA Nitrite Negative [Negative] (07/03/15 6:42 AM) UA Protein Pos 1+ [Negative] *ABN* (07/03/15 6:42 AM) UA Glucose Negative [Negative] (07/03/15 6:42 AM) UA Ketones Negative [Negative] (07/03/15 6:42 AM) UA Urobilinogen Negative [<1.0] (07/03/15 6:42 AM) UA Bili [Negative] Negative (07/03/15 6:42 AM) UA Blood [Negative] Negative (07/03/15 6:42 AM) UA Spec Grav 1.020 [1.003-1.030] (07/03/15 6:42 AM) Type Clean Catch (07/03/15 6:42 AM) UA WBC [0-4] 2-5 (07/03/15 6:42 AM) UA RBC [0-2] 2-5 (07/03/15 6:42 AM) UA Mucous Present (07/03/15 6:42 AM) Immunizations Vaccine Date Refusal Reason influenza virus vaccine, inactivated 03/19/15 influenza virus vaccine, inactivated1 04/05/14 1Location History: See scanned document Procedures Procedure Date Related Diagnosis Body Site Aspiration and/or injection of renal cyst or 07/03/15 pelvis by needle, percutaneous.. Introduction of guide into renal pelvis 07/03/15 and/or ureter with dilation to establish nephrostomy tract, percutaneous.. Nephrostolithotomy Percutaneous (Left)1 07/03/15 Cystoscopy Retrograde Pyelogram (Left)2 05/06/15 Cystoscopy Ureteroscopy (Left)3 05/06/15 Colonoscopy4 12/27/11 Esophagogastroduodenoscopy5 12/27/11 LT Ureteroscopy 02/17/11 Pyeloscopy w/laser lithotripsy 02/17/11 Bronchoscopy6 02/03/11 Ld ESWL w/ cystoscopy/remove j-stent 11/24/10 LT percutaneous nephrolithotomy7 09/29/10 RT percutaneous nephrolithotomy8 09/01/10 Blood transfusion9 1983 Parathyroid 1auto-populated from documented surgical case 2auto-populated from documented surgical case 3auto-populated from documented surgical case 4WNL repeat in 10 yrs 5Showing mild chornic gastritis and reflux esophagitis 6Trombold 7Fitzig 8Double J-Stent insertion Fitzig 9Due to bleeding gastric ulcer Social History Social History Type Response Smoking Status Never smoker Assessment and Plan No data available for this section
--- OUTSIDE RECORDS SUMMARY | 2016-11-01 09:44 | XMS REPORT | Referral Summary ---
Author Author [facility] Organization [facility] Address Unknown Phone Unavailable Care Team Providers Care Polish Compounder Name Role Phone Fran Calixto Primary Care Physician [phone] Encounter Date(s): 10/23/14 - 10/23/14 [facility] [address] [place] [address] Discharge Diagnosis: CALCULUS OF KIDNEY Discharge Disposition: [...] 10 mg tablets, # 90 tabs, eRx: [facility], 1 tabs Oral Daily,Instr:DC 10 mg tablets Start Date: 03/04/15 Status: Ordered hydrochlorothiazide 12.5 mg oral capsule See Instructions, 1 caps Oral Daily, # 30 Each, 10 Refill(s), eRx: [facility], 1 caps Oral Daily Start Date: 03/31/15 Status: Ordered Metoprolol Succinate ER 25 mg oral tablet, extended release 1 tabs, Oral, Daily, # 90 tabs, 3 Refill(s), Pharmacy: [facility]28 Start Date: 06/24/14 Status: Ordered multivitamin 1 tabs, Chewed, Daily, 0 Refill(s) Start Date: 03/19/15 Status: Ordered omeprazole 20 mg oral delayed release tablet See Instructions, 1 tabs Oral Daily, # 30 tabs, 5 Refill(s), eRx: [facility], 1 tabs Oral Daily Start Date: 01/10/15 Status: Ordered predniSONE 10 mg oral tablet See Instructions, TAKE ONE TABLET BY MOUTH ONCE DAILY, # 30 tabs, eRx: [facility]28, TAKE ONE TABLET BY MOUTH [...] 24 Hour Urine Citrate Excretion 24 Hour [facility] Comprehensive Metabolic Panel Creatinine Lvl 24 Hour Urine Cystinuria Profile Quant 24Hr [facility] Magnesium Level 24 Hour Urine Oxalate 24 Hour [facility] pH Urine PTH Sodium Level 24 Hour Urine Uric Acid Uric Acid 24 Hour Urine XR Abdomen AP
--- OUTSIDE RECORDS SUMMARY | 2016-11-01 09:45 | XMS REPORT | Referral Summary ---
Author Author [facility] Organization [facility] Address Unknown Phone Unavailable Care Team Providers Care Principal Secretary Name Role Phone Fran Calixto Primary Care Physician [phone] Encounter Date(s): 03/24/16 - 03/24/16 [facility] [address] [place] [address] [place] [address]- Discharge Diagnosis: Hypertensive heart disease Discharge Diagnosis: H/O hyperparathyroidism Discharge Diagnosis: Palpitations Discharge Diagnosis: H/O sarcoidosis Discharge Diagnosis: PVC (premature ventricular contraction) Discharge Disposition: 01-Home or Self Care Attending Physician: Eric Salcedo MD Admitting Physician: Eric Salcedo MD Referring Physician: Min Calixto MD Vital Signs Most recent to 1 oldest [Reference Range]: Peripheral Pulse 60 bpm Rate [60-100 bpm] (03/24/16 1:33 PM) Blood Pressure 120/84 mmHg [90-140/60-90 mmHg] (03/24/16 1:33 PM) Problem List Condition Effective Dates [...] MOUTH ONCE DAILY, # 90 tabs, eRx: [facility], TAKE ONE TABLET BY MOUTH ONCE DAILY Start Date: 03/08/16 Status: Ordered Asmanex HFA 200 mcg/inh inhalation aerosol 2 puffs, Inhalation, BID, Sample X 1 given to patient and instructed on use with spacer, # 1 Each, 2 Refill(s), Pharmacy: [facility]28, 2 puffs Inhalation BID,Instr:Sample X 1 given to patient and instructed on use with spacer Start Date: 02/18/16 Status: Ordered hydrochlorothiazide 12.5 mg oral capsule See Instructions, TAKE ONE CAPSULE BY MOUTH ONCE DAILY, # 30 caps, eRx: [facility]28, TAKE ONE CAPSULE BY MOUTH ONCE DAILY Start Date: 03/15/16 Status: Ordered Metoprolol Succinate ER 25 mg oral tablet, extended release See Instructions, TAKE ONE TABLET BY MOUTH ONCE DAILY, # 90 tabs, eRx: [facility]28, TAKE ONE TABLET BY MOUTH ONCE DAILY Start Date: 02/23/16 Status: Ordered multivitamin 1 tabs, Chewed, Daily, 0 Refill(s) Start Date: 03/19/15 Status: Ordered PriLOSEC 20 mg oral delayed release capsule 20 mg 1 caps, Oral, BID, # 60 caps, 6 Refill(s), Pharmacy: [facility]28, 1 caps Oral BID [...] 11/24/10 LT percutaneous nephrolithotomy9 09/29/10 RT percutaneous [id number] 09/01/10 Blood [id number] 1983 Parathyroid 1auto-populated from documented surgical case [...]
--- OUTSIDE RECORDS SUMMARY | 2016-11-01 09:45 | XMS REPORT | Referral Summary ---
Author Author [facility] Organization [facility] Address Unknown Phone Unavailable Care Team Providers Care Rotor Balancer Name Role Phone Fran Calixto Primary Care Physician [phone] Encounter Date(s): 02/18/16 - 02/18/16 [facility] [address] [place] [address] Discharge Diagnosis: Cough Discharge Diagnosis: Shortness of breath Discharge Diagnosis: Sarcoidosis (disorder) Discharge Disposition: 01-Home or Self Care Attending Physician: Norma Yuan MD Admitting Physician: Norma Yuan MD Vital Signs Most recent to 1 oldest [Reference Range]: Peripheral Pulse 73 bpm Rate [60-100 bpm] (02/18/16 1:47 PM) Respiratory Rate 18 br/min [14-20 br/min] (02/18/16 1:47 PM) Blood Pressure 130/62 mmHg [90-140/60-90 mmHg] (02/18/16 1:47 PM) SpO2 97 % (02/18/16 1:47 PM) Problem List Condition Effective Dates Status [...] MOUTH ONCE DAILY, # 90 tabs, eRx: [facility], TAKE ONE TABLET BY MOUTH ONCE DAILY Start Date: 12/08/15 Status: Ordered Asmanex HFA 200 mcg/inh inhalation aerosol 2 puffs, Inhalation, BID, Sample X 1 given to patient and instructed on use with spacer, # 1 Each, 2 Refill(s), Pharmacy: [facility]28, 2 puffs Inhalation BID,Instr:Sample X 1 given to patient and instructed on use with spacer Start Date: 02/18/16 Status: Ordered multivitamin 1 tabs, Chewed, Daily, 0 Refill(s) Start Date: 03/19/15 Status: Ordered PriLOSEC 20 mg oral delayed release capsule 20 mg 1 caps, Oral, BID, # 60 caps, 6 Refill(s), Pharmacy: [facility]28, 1 caps Oral BID Start [...] 11/24/10 LT percutaneous nephrolithotomy9 09/29/10 RT percutaneous [id number] 09/01/10 Blood [id number] 1984 Parathyroid 1auto-populated from documented surgical case [...] Office Visit Note Author: Norma Yuan Date: 02/18/16 Kera CHANEL Assessment/Plan 1.Cough Multifactorial with postnasal drip and acid reflux disease over cannot rule out an obstructive disease or sarcoidosis. 2.Shortness of breath Her shorts of his shortness of breath could be related to sarcoidosis or an obstructive airway disease on maintenance echo does like asthma. At this point will trial the patient on an inhaled corticosteroid Asmanex 200 g twice daily. 6 weeks trial and patient is to follow-up afterwards 3.Sarcoidosis (disorder) Presumed diagnosis of sarcoidosis. Patient continues to have cough and shortness of breath and will need more definite diagnosis. We'll plan forbronchoscopy with endobronchial ultrasound for mediastinal lymph node sampling and potentially endobronchial and transbronchial biopsies. We'll discuss next office visit in 6 weeks
--- OUTSIDE RECORDS SUMMARY | 2016-11-01 09:45 | XMS REPORT | Referral Summary ---
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 Providers Care Hoist Worker Name Role Phone Fran Calixto Primary Care Physician [phone] Encounter VC Date(s): 07/21/16 - 07/21/16 [facility] [address] [place] [address] Discharge Diagnosis: Renal stone Discharge Diagnosis: Renal stone Discharge Disposition: 01-Home [...] MOUTH ONCE DAILY, # 90 tabs, eRx: [facility]28, TAKE ONE TABLET BY MOUTH ONCE DAILY Start Date: 05/31/16 Status: Ordered hydrochlorothiazide 12.5 mg oral capsule See Instructions, TAKE ONE CAPSULE BY MOUTH ONCE DAILY, # 30 caps, 10 Refill(s) , eRx: [facility]28, TAKE ONE CAPSULE BY MOUTH ONCE DAILY Start Date: 04/12/16 Status: Ordered Metoprolol Succinate ER 25 mg oral tablet, extended release See Instructions, TAKE ONE TABLET BY MOUTH ONCE DAILY, # 90 tabs, eRx: [facility]28, TAKE ONE TABLET BY MOUTH ONCE DAILY Start Date: 05/31/16 Status: Ordered multivitamin 1 tabs, Chewed, Daily, 0 Refill(s) Start Date: 03/19/15 Status: Ordered PriLOSEC 20 mg oral delayed release capsule 20 mg 1 caps, Oral, BID, # 60 caps, 6 Refill(s), Pharmacy: [facility]28, 1 caps Oral [...] 11/24/10 LT percutaneous nephrolithotomy9 09/29/10 RT percutaneous [id number] 09/01/10 Blood [id number] 1983 Parathyroid 1auto-populated from documented surgical case [...] Patient Education Author: Mario Tomas MD Date: Preventive Medicine Dietary Guidelines to Help Prevent Kidney [...] Eggplant. [place]. Leeks. Okra. Parsley. Rutabagas. Spinach. Peruvian chard. Tomato paste. Fried potatoes. Sweet potatoes. [...] Released: 10/08/2011 Document Revised: 06/18/2014 Document Reviewed: [employer] Patient Education 2016 [employer] No follow up information was provided. Extracted from: Title: Office Visit Note Author: Mario Tomas MD Date: 07/21/16 Assessment/Plan 1.Renal stone Ordered: XR Abdomen AP
--- OUTSIDE RECORDS SUMMARY | 2016-11-01 09:45 | XMS REPORT | Referral Summary ---
Author Author [facility] Organization [facility] Address Unknown Phone Unavailable Care Team Providers Care Nurse Practitioner Per Diem Name Role Phone Fran Calixto Primary Care Physician [phone] Encounter VC Date(s): 05/06/15 - 05/06/15 [facility] [address] [facility] [place], [place] [address] Discharge Disposition: 01-Home or Self Care Attending Physician: Mario Tomas MD Admitting Physician: Mario Tomas MD Vital Signs Most recent to 1 oldest [Reference Range]: Temperature Temporal 36.0 degC Artery [36.3-37.8 *LOW* degC] (05/06/15 4:45 PM) Peripheral Pulse 54 bpm Rate [60-100 bpm] *LOW* (05/06/15 1:07 PM) Heart Rate Monitored 80 bpm [60-100 bpm] (05/06/15 5:15 PM) Respiratory Rate 18 br/min [14-20 br/min] (05/06/15 5:15 PM) Blood Pressure 129/86 mmHg [90-140/60-90 mmHg] (05/06/15 5:15 PM) Mean Arterial 94 mmHg Pressure, Cuff (05/06/15 5:15 PM) SpO2 98 % (05/06/15 5:15 PM) Problem List Condition Effective Dates Status [...] 10 mg tablets, # 90 tabs, eRx: [facility] [address], 1 tabs Oral Daily,Instr:DC 10 mg tablets Start Date: 03/04/15 Status: Ordered Cipro 500 mg oral tablet 500 mg 1 tabs, Oral, q12hr, X 10 days, # 8 tabs, 0 Refill(s), Pharmacy: [place] [facility] [address], 1 tabs Oral q12hr,x10 days Start Date: 05/06/15 Stop Date: 05/16/15 Status: Ordered Flomax 0.4 mg oral capsule 0.4 mg 1 caps, Oral, Daily, # 30 caps, 0 Refill(s), Pharmacy: [facility] [address], 1 caps Oral Daily Start Date: 05/06/15 Status: Ordered hydrochlorothiazide 12.5 mg oral capsule See Instructions, 1 caps Oral Daily, # 30 Each, 10 Refill(s), eRx: [facility] [address], 1 caps Oral Daily Start Date: 03/31/15 Status: Ordered Metoprolol Succinate ER 25 mg oral tablet, extended release 1 tabs, Oral, Daily, # 90 tabs, 3 Refill(s), Pharmacy: [facility] [address] Start Date: 06/24/14 Status: Ordered multivitamin 1 tabs, Chewed, Daily, 0 Refill(s) Start Date: 03/19/15 Status: Ordered omeprazole 20 mg oral delayed release tablet See Instructions, 1 tabs Oral Daily, # 30 tabs, 5 Refill(s), eRx: [facility] [address], 1 tabs Oral Daily Start Date: 01/10/15 Status: Ordered predniSONE 10 mg oral tablet See Instructions, TAKE ONE TABLET BY MOUTH ONCE DAILY, # 30 tabs, eRx: [facility] [address], TAKE ONE TABLET BY MOUTH ONCE DAILY Start Date: 05/05/15 Status: Ordered Vitamin D3 5000 intl units oral tablet Oral, Daily, # 100 tabs, 0 Refill(s) Start Date: 10/23/14 Status: Ordered Results Hematology Most recent to 1 oldest [Reference Range]: WBC [4.8-10.8 5.1 10*3/uL 10*3/uL] (05/06/15 1:11 PM) RBC [4.60-6.20] 6.50 *HI* (05/06/15 PM) Hgb [14.0-18.0 18.5 gm/dL gm/dL] *HI* (05/06/15 PM) Hct [42.0-52.0 %] 56.2 % *HI* (05/06/15 PM) MCV [82.0-99.0 fL] 86.5 fL (05/06/15 PM) MCH [27.0-32.0 pg] 28.5 pg (05/06/15 PM) MCHC [32.0-36.0 32.9 gm/dL gm/dL] (05/06/15 PM) RDW [11.5-14.5 %] 13.4 % (05/06/15 PM) Platelet [150-400 127 10*3/uL 10*3/uL] *LOW* (05/06/15 PM) MPV [9.4-12.3 fL] 9.5 fL (05/06/15 PM) Coagulation Most recent to 1 oldest [Reference Range]: INR [0.9-1.2] 1.1 (05/06/15 PM) PTT [25.0-35.0 33.3 seconds seconds] (05/06/15 PM) Chemistry Most recent to 1 oldest [Reference Range]: Sodium Lvl [136-144 141 mEq/L mEq/L] (05/06/15 PM) Potassium Lvl 3.2 mEq/L [3.6-5.1 mEq/L] *LOW* (05/06/15 PM) Chloride [99-109 102 mEq/L mEq/L] (05/06/15 PM) CO2 [22-32 mEq/L] 30 mEq/L (05/06/15 PM) AGAP [3-20] 9 (05/06/15 PM) BUN [4-20 mg/dL] 20 mg/dL (05/06/15: PM) Glucose Lvl [70-100 89 mg/dL mg/dL] (05/06/15 PM) Creatinine Lvl 1.29 mg/dL [0.64-1.27 mg/dL] *HI* (05/06/15 1:11 PM) eGFR [>60] 57 1 *ABN* (05/06/15 1:11 PM) Calcium Lvl 9.0 mg/dL [8.6-10.0 mg/dL] (05/06/15 1:11 PM) Albumin Lvl [3.5-4.8 4.2 gm/dL gm/dL] (05/06/15 1:11 PM) Total Protein 6.7 gm/dL [6.1-7.9 gm/dL] (05/06/15 1:11 PM) Globulin [1.9-4.3 2.5 gm/dL gm/dL] (05/06/15 1: PM) ALT [17-63 U/L] 20 U/L (05/06/15:11 PM) AST [15-41 U/L] 22 U/L (05/06/15: PM) Alk Phos [26-104 44 U/L U/L] (05/06/15: PM) Bili Total [0.2-1.2 1.3 mg/dL 2 mg/dL] *HI* (05/06/15 1:11 PM) Blood Glucose, 83 mg/dL Capillary [70-100 (05/06/15:10 PM) mg/dL] 1Result Comment: Multiply eGFR results by 1.21 for race. 2Result Comment: Naproxen, specifically the metabolite O-desmethylnaproxen, may cause spurious elevation in Total Bilirubin levels. Urinalysis Most recent to 1 oldest [Reference Range]: UA Color Yellow (05/06/15 1:11 PM) UA Appear Clear (05/06/15 1:11 PM) UA pH [5.0-8.0] 7.0 (05/06/15 1:11 PM) UA Leuk Est Negative [Negative] (05/06/15 1:11 PM) UA Nitrite Negative [Negative] (05/06/15 1:11 PM) UA Protein Negative [Negative] (05/06/15:11 PM) UA Glucose Negative [Negative] (05/06/15: PM) UA Ketones Negative [Negative] (05/06/15 1:11 PM) UA Urobilinogen Negative [<1.0] (05/06/15 1:11 PM) UA Bili [Negative] Negative (05/06/15 1:11 PM) UA Blood [Negative] Negative (05/06/15 1:11 PM) UA Spec Grav 1.016 [1.003-1.030] (05/06/15 1:11 PM) Type Clean Catch (05/06/15 1:11 PM) Immunizations Vaccine Date Refusal Reason influenza virus [...]
--- OUTSIDE RECORDS SUMMARY | 2016-11-01 09:45 | XMS REPORT | Referral Summary ---
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 Providers Care Lead Material Handler Name Role Phone Fran Calixto Primary Care Physician [phone] Encounter VC Date(s): 10/14/15 - 10/14/15 [facility] [address] [place] [id number] Discharge Disposition: 01-Home or Self Care Attending Physician: Mario Tomas MD Admitting Physician: Mario Tomas MD Vital Signs Most recent to 1 oldest [Reference Range]: Respiratory Rate 18 br/min [14-20 br/min] (10/14/15 10:40 AM) Blood Pressure 130/80 mmHg [90-140/60-90 mmHg] (10/14/15 10:40 AM) Problem List Condition Effective Dates Status [...] 10 mg tablets, # 90 tabs, eRx: [facility], 1 tabs Oral Daily,Instr:DC 10 mg tablets Start Date: 06/02/15 Status: Ordered amLODIPine 5 mg oral tablet See Instructions, 1 tabs Oral Daily,Instr:DC 10 mg tablets, # 90 tabs, eRx: [facility], 1 tabs Oral Daily,Instr:DC 10 mg tablets Start Date: 09/08/15 Status: Ordered Cipro 500 mg oral tablet 500 mg 1 tabs, Oral, q12hr, X 10 days, # 20 tabs, 0 Refill(s), Pharmacy: [facility], 1 tabs Oral q12hr,x10 days Start Date: 10/14/15 Stop Date: 10/24/15 Status: Ordered Metoprolol Succinate ER 25 mg oral tablet, extended release See Instructions, 1 tabs Oral Daily, # 90 tabs, eRx: [facility], 1 tabs Oral Daily Start Date: 09/29/15 Status: Ordered multivitamin 1 tabs, Chewed, Daily, 0 Refill(s) Start Date: 03/19/15 Status: Ordered omeprazole 20 mg oral delayed release capsule See Instructions, TAKE ONE CAPSULE BY MOUTH ONCE DAILY, # 30 caps, eRx: [facility], TAKE ONE CAPSULE BY MOUTH ONCE DAILY Start Date: 10/06/15 Status: Ordered Vitamin D3 5000 intl units oral tablet 5,000 Intl_Units 1 tabs, Oral, Daily, # 100 tabs, 0 Refill(s) Start Date: 10/23/14 Status: Ordered Results No data available for this section Immunizations Vaccine Date Refusal Reason influenza virus vaccine, inactivated 03/19/15 influenza virus vaccine, inactivated1 04/05/14 1Location History: See scanned document Procedures Procedure Date Related Diagnosis Body Site Cystourethroscopy (separate procedure).. 10/14/15 Cystoscopy Ureteroscopy1 08/28/15 Nephrostolithotomy Percutaneous (Right)2 08/07/15 Nephrostolithotomy Percutaneous (Left)3 07/03/15 Cystoscopy Retrograde Pyelogram (Left)4 05/06/15 Cystoscopy Ureteroscopy (Left)5 05/06/15 Colonoscopy6 12/27/11 Esophagogastroduodenoscopy7 12/27/11 LT Ureteroscopy 02/17/11 Pyeloscopy w/laser lithotripsy 02/17/11 Bronchoscopy8 02/03/11 Ld ESWL w/ cystoscopy/remove j-stent 5/31/11 LT percutaneous nephrolithotomy9 09/29/10 RT percutaneous [id number] 09/01/10 Blood [id number] 1983 Parathyroid 1auto-populated from documented surgical case [...]
--- OUTSIDE RECORDS SUMMARY | 2016-11-01 09:45 | XMS REPORT | Referral Summary ---
Author Author [facility] Organization [facility] Address Unknown Phone Unavailable Care Team Providers Care Bedspread Cutter Name Role Phone Fran Calixto Primary Care Physician [phone] Encounter Date(s): 05/13/15 - 05/13/15 [facility] [address] [place] [place] [id number] Discharge Diagnosis: H/O sarcoidosis Discharge Disposition: 01-Home or Self Care Attending Physician: Norma Yuan MD Admitting Physician: Norma Yuan MD Vital Signs No [...] 10 mg tablets, # 90 tabs, eRx: [facility], 1 tabs Oral Daily,Instr:DC 10 mg tablets Start Date: 03/04/15 Status: Ordered Cipro 500 mg oral tablet 500 mg 1 tabs, Oral, q12hr, X 10 days, # 8 tabs, 0 Refill(s), Pharmacy: [facility], 1 tabs Oral q12hr,x10 days Start Date: 05/06/15 Stop Date: 05/16/15 Status: Ordered Metoprolol Succinate ER 25 mg oral tablet, extended release 1 tabs, Oral, Daily, # 90 tabs, 3 Refill(s), Pharmacy: [facility] Start Date: 06/24/14 Status: Ordered multivitamin 1 tabs, Chewed, Daily, 0 Refill(s) Start Date: 03/19/15 Status: Ordered omeprazole 20 mg oral delayed release tablet See Instructions, 1 tabs Oral Daily, # 30 tabs, 5 Refill(s), [facility], 1 tabs Oral Daily Start Date: 01/10/15 [...]
--- OUTSIDE RECORDS SUMMARY | 2016-11-01 09:45 | XMS REPORT | Referral Summary ---
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 Role Phone Fran Calixto Primary Care Physician [phone] Encounter VC Date(s): 04/29/15 - 04/29/15 [facility] [address] [place] [place] [id number] Discharge Disposition: 01-Home or Self Care [...] 10 mg tablets, # 90 tabs, eRx: [facility], 1 tabs Oral Daily,Instr:DC 10 mg tablets Start Date: 03/04/15 Status: Ordered hydrochlorothiazide 12.5 mg oral capsule See Instructions, 1 caps Oral Daily, # 30 Each, 10 Refill(s), eRx: [facility], 1 caps Oral Daily Start Date: 03/31/15 Status: Ordered Metoprolol Succinate ER 25 mg oral tablet, extended release 1 tabs, Oral, Daily, # 90 tabs, 3 Refill(s), Pharmacy: [facility] Start Date: 06/24/14 Status: Ordered multivitamin 1 tabs, Chewed, Daily, 0 Refill(s) Start Date: 03/19/15 Status: Ordered omeprazole 20 mg oral delayed release tablet See Instructions, 1 tabs Oral Daily, # 30 tabs, 5 Refill(s), eRx: [facility], 1 tabs Oral Daily Start Date: 01/10/15 Status: Ordered predniSONE 10 mg oral tablet See Instructions, TAKE ONE TABLET BY MOUTH ONCE DAILY, # 30 tabs, eRx: [facility], TAKE ONE TABLET BY [...] Visit Note Author: Mario Tomas MD Date: 05/01/15 Assessment/Plan CALCULUS OF KIDNEY
--- NOTE | 2016-11-01 10:00 | ANESPREOP ---
Anesthesia Record Date and Time DATE: 11/01/16 TIME: 09:58 Pre-Op Diagnosis Umbilical Hernia Proposed Surgical Procedure UMBILICAL HERNIA REPAIR NPO since: Midnight Allergies: Coded Allergies: NKDA (Verified Allergy, 01/17/12) NKDA per patient Ht/Wt/BMI Height: 6 ' 4.00 " Weight: 117.800 kg BMI: 31.6 kg/m2 Vital Signs Date Time Temp Pulse Resp B/P Pulse Ox O2 Delivery O2 Flow Rate FiO2 11/01/16 09:48 97.7 81 16 162/109 95 Room Air Medications Amlodipine Besylate (Amlodipine Besylate) 5 Mg Tablet, 1 TAB PO DAILY, (Reported ) Cholecalciferol (Vitamin D3) (Vitamin D3) 5,000 Unit Tablet, 1 TAB PO DAILY, ( Reported) Hydrochlorothiazide (Hydrochlorothiazide) 12.5 Mg Capsule, 1 CAP PO DAILY, ( Reported) Metoprolol Succinate (Metoprolol Succinate) 25 Mg Tab.er.24h, 1 TAB PO DAILY, ( Reported) Last Taken: on 11/01/16 Mometasone Furoate (Asmanex Hfa) 13 Gm Hfa.aer.ad, 2 PUFF INH BID, (Reported) Omeprazole (Omeprazole) 20 Mg Capsule.dr, 1 CAP PO BID, (Reported) Potassium Chloride (Potassium Chloride) 10 Meq Capsule.sa, 10 MEQ PO DAILY, ( Reported) Currently on Beta Dinora: Yes Medical/Surgical History Anesthesia PMH: Reports: *Hypertension (PER H&P), Reflux, Renal Disease (HX ACUTE RENAL FAILURE PER PAST ADMIT), Denies: *Angina, *Diabetes, *RI, Anesthesia Reactions, Asthma, Blood Transfusion Reac, CHF, COPD, CVA/Stroke/TIA , Cancer, Malignant Hyperthermia, Pneumonia, Seizures, Thyroid Disease, Tuberculosis Smoking Status: Former smoker Has pt. smoked today?: No Use Chewing Tobacco?: No Second Hand Exposure: No Substance Use Type: does not use Alcohol Intake: none Past Surgical History Orthopedic Surgeries: Abdominal Surgeries: No Genitourinary Surgeries: Yes - CYSTOSCOPY,LITHO,NEPHROSTOLITHOTOMY PER H&P Cardiac Surgeries: Endocrine Surgeries: Reproductive Surgeries: Neurological Surgeries: Ear Surgeries: Nose Surgeries: Throat Surgeries: Other Surgeries: Yes - COLONOSCOPY,EGD,BRONCHOSCOPY Anesthesia Adverse Reactions: FOUND none Hx of Motion Sickness: No Pertinent Findings EKG Rhythm: Sinus Rhythm Physical Exam Respiratory: Lungs clear Cardiovascular: FOUND Regular rate, rhythm Airway Assessment Mallampati Score: II TMD: 3 Fingerbreadths Neck Extension: Good Teeth: Partial Lower Dentures Overall Assessment: No Airway Concerns ASA: 3 Plan Anesthesia Plan: TIVA, LMA Discussion Discussed risks/options/alternatives of anesthesia and questions answered. Patient consents. Nursing pain assessment noted. Attestation Statement Prior to the delivery of any anesthetic medication, I examined the patient, developed the plan, obtained the patient's consent and discussed the risk and benefits of the procedure with the patient/guardian. NATHALIA MARTINEZ DAMPPROOFER November 01, 2016 09:59
[2016-11-01 10:15] LABS: BASOPHILS % (AUTO) 0.6 % (0-2); EOSINOPHILS # (AUTO) 0.1 T/MM3 (0-0.5); EOSINOPHILS % (AUTO) 2.2 % (0-4); HCT - HEMATOCRIT 52.1 % (41-53); HGB - HEMOGLOBIN 15.9 GM/DL (13.5-17.5); LYMPHOCYTES # (AUTO) 0.8 T/MM3 (1-4.8); LYMPHOCYTES % (AUTO) 15.1 % (23-45); MEAN CORPUSCULAR HGB 22.7 UUG (26-34); MEAN CORPUSCULAR HGB CONC(MCHC 30.5 GM/DL (31-37); MEAN CORPUSCULAR VOLUME 74.5 UM3 (80-100); MEAN PLATELET VOLUME 9.5 UM3 (9.4-12.4); MONOCYTES # (AUTO) 0.6 T/MM3 (0-0.8); NEUTROPHILS #(AUTO)-ABSOLUTE 3.8 T/MM3 (1.8-7.7); NEUTROPHILS % (AUTO) 71.1 % (33-66); RED BLOOD COUNT 6.99 M/MM3 (4.50-5.90); WBC - WHITE BLOOD COUNT 5.4 T/MM3 (4.5-11.0)
[2016-11-01] MEDS ORDERED: BUPIVACAINE 0.25%/EPI 1:200,000 30ml SDV ONE (10:22)
[2016-11-01 10:47] LABS: ALBUMIN 4.4 G/DL (3.5-5.0); ALBUMIN/GLOBULIN RATIO 1.5 RATIO (1.1-2.2); ALKALINE PHOSPHATASE 75 U/L (38-126); ALT (SGPT) 38 U/L (21-72); ANION GAP 16 MEQ/L (5-15); AST (SGOT) 27 U/L (17-59); BUN/CREATININE RATIO 17 RATIO (6-26); CALCIUM 9.5 MG/DL (8.4-10.2); CHLORIDE 105 MEQ/L (98-107); CO2 - CARBON DIOXIDE 26 MEQ/L (22-30); CREATININE 1.2 MG/DL (0.8-1.5); GLOMERULAR FILTRATION RATE 62; GLUCOSE 109 MG/DL (75-110); POTASSIUM 3.4 MEQ/L (3.6-5); SODIUM 147 MEQ/L (134-144); TOTAL PROTEIN 7.4 G/DL (6.3-8.2)
[2016-11-01] MEDS ORDERED: LIDOCAINE 2% (20mg/ml) 5ml PF SDV ONE (10:47)
[2016-11-01] MEDS ORDERED: FENTANYL 250mcg/5ml INJECTION ONE (10:55)
[2016-11-01] MEDS ORDERED: GLYCOPYRROLATE 0.4mg/2ml INJECTION ONE (11:06)
[2016-11-01] MEDS ORDERED: ONDANSETRON 4mg/2ml INJECTION ONE (11:09)
[2016-11-01] MEDS ORDERED: EPHEDRINE SULFATE 50mg/ml INJECTION ONE (11:10)
[2016-11-01] MEDS ORDERED: CEFAZOLIN 1 GRAM INJECTION IV ONE (11:30)
[2016-11-01] MEDS ORDERED: NALOXONE 0.4mg/ml INJECTION ONE (12:04)
[2016-11-01] MEDS ORDERED: IBUP-1724 PO (12:07)
[2016-11-01] MEDS ORDERED: HYDR-4246 PO (12:07)
[2016-11-01] MEDS ORDERED: KETOROLAC 30mg/ml INJECTION IV PRN (12:30)
--- NOTE | 2016-11-01 12:51 | ANESPO ---
Post-Op Note Date 11/01/16 Time: 12:49 Status Pt Participated in Evaluation: Pt participated in person Vital Signs Date Time Temp Pulse Resp B/P Pulse Ox O2 Delivery O2 Flow Rate FiO2 11/01/16 12:42 67 12 122/82 90 Nasal Cannula 3.00 11/01/16 12:10 97.5 Respiratory Function: Airway patent, Regular respirations Cardiovascular Function: Regular pulse Mental Status: Alert/oriented Pain Level Intensity: 0 (0) Hydration: Taking po fluids, IV infusing Complications during Recovery None apparent Post-Anesthesia Notes pt. doing fairly well Follow-Up Instructions Instructions Per Surgeon Additional Information none HARVINDER SHIPLEY CRNA November 01, 2016 12:51
[2016-11-01] MEDS ORDERED: HYDROCODONE/APAP 5 mg/325 mg TABLET PO PRN (13:00)
--- NOTE | 2016-11-01 21:09 | OPNOTEF ---
DATE OF SERVICE 11/01/2016 SURGEON Rojelio Recinos MD PREOPERATIVE DIAGNOSIS Symptomatic incarcerated umbilical hernia. POSTOPERATIVE DIAGNOSES Symptomatic incarcerated umbilical hernia. PROCEDURE Repair of incarcerated umbilical hernia with incorporation of mesh. ANESTHESIA TIVA/local. BRIEF HISTORY/INDICATIONS Mr. Hastings is a 56-year-old gentleman who recently presented to my office a result of his history for periumbilical discomfort. Upon physical examination the patient was found to have a epmbgpxj-be-mcxxi-size incarcerated local hernia. Patient presents today to undergo elective repair. For completeness please refer to notes included in the patient's chart. NARRATIVE OF PROCEDURE After informed consent was obtained the patient was brought to the operative suite and placed on the table in supine fashion. The periumbilical region was prepped and draped in sterile fashion. Formal timeout was then completed. Next, 0.25% Marcaine with epinephrine was injected circumferentially around the umbilicus. A 4-cm curved infraumbilical incision was then made through the area of analgesia. Dissection was carried down to the deep subcuticular tissues. The base of the umbilicus itself was then dissected off of the underlying hernia sac. Hernia sac was then dissected free at the level of the fascial defect. Hernia sac contained a moderate amount of incarcerated omentum. There was perhaps 4 cm of omentum that extended beyond the fascial defect. Hernia sac was dissected free circumferentially at the level of the fascial defect and the hernia and its contents were then returned into the peritoneal cavity. Preperitoneal dissection was then carried out circumferentially around the fascial defect. Fascial defect itself was on the order of 2.5 to 3 cm in total length. A piece of Ventralex mesh that was roughly about 6 to 7 cm in diameter was then brought forth to the operative field and placed within the preperitoneal space. Mesh was laid flat beneath the fascia within the preperitoneal location. The edges of the mesh were then imbricated to the fascia at all four quadrants. This was performed utilizing 0-PDS. A single interrupted suture was placed at the 12 o'clock, 3 o'clock, 6 o'clock and 9 o'clock position. First, the suture was passed through the fascia followed by a small purchase of the mesh and subsequently placed back up through the fascia. This was done several centimeters away from the edge of the fascial defect at the edge of the mesh. Each suture was then tied sequentially, resulting in nice imbrication of the mesh at its edges at all four quadrants. Next, attention was direct towards closure of the fascial defect. Fascial defect was closed by placing multiple single interrupted sutures of 0-PDS. A small purchase of underlying mesh was also obtained during placement of the sutures. The tail portions of the mesh were cut so that the mesh was beneath the fascia. Each suture was then tied sequentially, resulting in nice imbrication of the edges of the fascial defect. Attention was then directed towards closure. First, the base of the umbilicus was imbricated to the underlying fascia. This was accomplished by obtaining a small subcuticular purchase of the base of the umbilicus followed by a small purchase of the fascia utilizing 3-0 Vicryl. Deep subcutaneous tissues were then reapproximated in a running fashion with 3-0 Vicryl. Skin itself was then closed in a running subcuticular fashion with 4-0 Monocryl. Dermabond was placed overlying the incision. Patient is in the process of awakening from his anesthetic and will be sent back to the recovery room once deemed in stable condition. VAISHALI
== END 2016-11-01 13:58 | disposition home or self-care (01) ==
LOC: SCU 09:37
PROVIDERS: ATTEND Surgery
DX: K42.0 Umbilical hernia with obstruction, without gangrene (principal)
CPT/HCPCS: 36415; 49587; 80053; 85025; A9270; J0330; J1885; J2310; J2405; J3010; J7030